=== PATIENT | female | born 1970 | race Caucasian/White ===

== ENCOUNTER 2019-08-18 07:23 | Emergency (ER) | payer OTHER, SELFPAY ==
[2019-08-18] VITALS (15 sets, daily range): BP systolic 107–123; BP diastolic 78–98; PULSE 61–80; RESP 10–22; TEMP 36.7; O2SAT 96–100
--- NOTE | ~2019-08-18 | XR_ITS ---
EXAMINATION: XR chest 2V DATE: 08/18/2019 07:53 INDICATION: Rest pain. Left arm and hand numbness and weakness. TECHNIQUE: PA and lateral views of the chest were obtained. COMPARISON: Chest radiograph dated 04/30/2009 FINDINGS: Minimal biapical pleural-parenchymal scarring. No other airspace opacities, pulmonary edema, pleural effusion or pneumothorax. The cardiomediastinal silhouette is normal. Visualized bones and soft tissu es are unremarkable. IMPRESSION: 1. No acute cardiopulmonary disease. Reviewed, dictated and finalized at location [facility]
--- NOTE | 2019-08-18 07:38 | ECG_ITS ---
Measurements Intervals [place] Rate: 70 P: 65 IN: 139 QRS: 29 QRSD: 80 T: 18 QT: 392 QTc: 423 Interpretive Statements SINUS RHYTHM LOW QRS VOLTAGE IN PRECORDIAL LEADS BORDERLINE ST-T WAVE ABNORMALITY- ANT/INF LEADS BORDERLINE ECG Electronically Signed On 08-18-2019 9:24:33 [employer] FIR[employer] by Maycol Flannery D.O.
[2019-08-18] MEDS: ASPIRIN 81 MG CHEWABLE TABLET 324 MG PO (07:45)
[2019-08-18 07:50] LABS: Basophils Percent Auto 0.2 % (0.2-1.2); Eosinophils Absolute Auto 0.1 K/mm3 (0-0.3); Hematocrit 42.9 % (37.0-47.0); Hemoglobin 14.3 g/dL (12.0-15.0); Immature Granulocyte Absolute 0.02 K/mm3 (0.00-0.031); Immature Granulocyte Percent A 0.3 % (0-0.5); Lymphocytes Percent Auto 34.9 % (18.3-44.2); Mean Corpuscular HGB Conc 33.3 g/dl (32-36); Mean Corpuscular Hemoglobin 31.2 pg (26-34); Mean Corpuscular Volume 93.7 fl (80-100); Mean Platelet Volume 10.8 fl (7.4-10.4); Monocytes Absolute Auto 0.8 K/mm3 (0.1-0.6); Monocytes Percent Auto 13.6 % (2.6-8.5); Neutrophils Absolute Auto 2.9 K/mm3 (1.3-6.7); Platelet Count Result 199 k/mm3 (150-375); Red Blood Count 4.58 M/mm3 (4.2-5.4); Red Cell Distribution Width 13.1 % (11.5-14.5); White Blood Count 5.7 K/mm3 (4.5-10.0)
[2019-08-18 07:57] LABS: INR 0.9
[2019-08-18 07:59] LABS: Partial Thromboplastin Time 31.5 SECONDS (22.3-36.8)
[2019-08-18 08:01] LABS: Blood Urea Nitrogen 11 mg/dL (7-17); Carbon Dioxide 30 mmol/L (22-30); Chloride 100 mmol/L (98-107); Estimated CRCL calculation 105 ml/min; Estimated Glomerular Filt Rate > 60; Glucose 82 mg/dL (65-105); Potassium 4.1 mmol/L (3.4-5.0); Sodium 139 mmol/L (137-145)
--- NOTE | 2019-08-18 08:05 | ED.CHESTPAIN ---
HPI - Chest Pain General Chief Complaint: Chest Pain Stated Complaint: cp Time Seen by Provider: 08/18/19 08:06 Source: patient Mode of arrival: ambulatory Limitations: no limitations History of Present Illness HPI narrative: A 49 y/o female presents to the ED with c/o midsternal CP. Pt got ready for bed at 9:30 PM last night but was unable to fall asleep because she was uncomfortable. At 1:00 AM pt states that she started to experience left arm pain. The CP then started at 4:00-5:00 AM. Pt rates the pain as a 5/10 in severity at onset but states that her current pain in the ED bed is a 1/10. Her pain is alleviated when sitting up. Pt has a history of trouble sleeping and occasionally takes Ambien. Pt denies any recent activity out of the ordinary or any extra stressors in her life. Pt is also on Duloxetine for nerve pain in her legs. She reports a PMHx of migraines, but denies smoking, a FHx of heart problems, and a PMHx of DM, HTN, and HLD. Onset (ago): hour(s) (4:00-5:00 AM) Onset: during rest Pain location: other (midsternal) Related Data Home Medications Medication Instructions Recorded Confirmed duloxetine 08/18/19 Allergies Allergy/AdvReac Type Severity Reaction Status Date / Time No Known Allergies Allergy Verified 08/18/19 07:39 Review of Systems Review of Systems: All systems reviewed & are unremarkable except as noted in HPI and below Cardiovascular: Cardiovascular: Reports chest pain (midsternal) Musculoskeletal: Comments: Reports: left arm pain preceding midsternal CP PMFSH Past Medical History Medical History (Updated 08/18/19 @ 08:35 by Jomar Lilly MD) Cerebral aneurysm Hx of migraines Surgical History Surgical History (Updated 08/18/19 @ 08:16 by Michelle Camejo) H/O: hysterectomy Previous section Social History Social History (Updated 08/18/19 @ 08:16 by Michelle Camejo) Smoking status: Never smoker Gender identity (if verbalized by the patient): Female Comments No PCP on file. Exam Narrative: Exam Narrative: General appearance: Well-developed, well-nourished Skin: Normal color Head: Normocephalic, nontraumatic Eyes: Clear conjunctiva ENT: Oropharynx normal, ears normal, nose normal Neck: Supple, nontender Chest and respiratory: Airway patent, no respiratory distress, no accessory muscle use Heart: Regular rate/rhythm Abdomen: Soft, nontender, no organomegaly, quiet bowel sounds Vascular: Normal peripheral pulses, normal capillary refill. Musculoskeletal: Normal range of motion, nontender back Neurologic: Alert and oriented ?3, [employer] is normal as tested, no gross motor deficit Course Course Emergency Course: Improving Vital Signs Vital signs: Vital Signs Pulse Rate 80 08/18/19 07:28 Respiratory Rate 22 H 08/18/19 07:28 Blood Pressure 123/98 H 08/18/19 07:28 Temperature 36.7 C 08/18/19 07:33 Pulse Rate 64 08/18/19 09:30 Respiratory Rate 15 08/18/19 09:30 Blood Pressure 107/83 08/18/19 09:01 Pulse Oximetry 100 08/18/19 09:30 MDM - Chest Pain MDM Narrative Medical decision making narrative: Atypical chest pain is my concern. Patient does not have any risk factor of coronary artery disease. History of chronic migraine, on duloxetine for nerve pain in the lower extremities, patient does not have any risk factor for peripheral neuropathy. Patient also been complaining of chronic right upper quadrant pain with negative extensive work-up including CAT scan of the abdomen and ultrasound. Patient on Ambien for insomnia. Patient does not smoke or drink, anxiety, stress, depression inducing atypical chest pain is my concern. EKG on arrival showed n
[2019-08-18 08:12] LABS: Troponin I < 0.012 ng/mL (0.000-0.034)
[2019-08-18 09:27] LABS: Alveolar/Arterial O2 Gradient 24.3 mmHg; Base Excess ABG 1.2 mEq/l (+/-2.0); Fractional Inspired Oxygen 21 %; HCO3 ABG 25.9 mEq/l (22.0-26.0); Oxygen Content ABG 19.1 %vol (16.0-22.0); Oxygen Saturation ABG 95.3 % (95.0-100.0); Oxyhemoglobin 95.5 % THb (90.0-100.0); PCO2 ABG 41.5 mmHg (35.0-45.0); PO2 ABG 75.7 mmHg (80.0-100.0); Total Hemoglobin 14.2 g/dL (12.0-18.0); pH ABG 7.413 (7.350-7.450)
[2019-08-18 09:28] LABS: Device ROOM AIR; Modified Allen's Test Pass; Site Drawn LEFT RADIAL
[2019-08-18 09:37] LABS: NT Pro B Type Natriuretic Pept 81 PG/ML (5-100)
[2019-08-18 10:10] LABS: D Dimer 0.27 ug/mL (<0.48)
[2019-08-18 11:06] LABS: Troponin I < 0.012 ng/mL (0.000-0.034)
== END 2019-08-18 11:13 | disposition home or self-care (01) ==
PROVIDERS: Emergency Provider Emergency Medicine; PCP Family Medicine
DX: R07.2 Precordial pain (principal); R94.31 Abnormal electrocardiogram [ECG] [EKG]
CPT/HCPCS: 36415; 36600; 71046; 80048; 82805; 83880; 84484; 85025; 85380; 85610; 85730; 87420; 87804; 93005; 99284; A9270

== ENCOUNTER 2024-03-13 13:16 | Emergency (ER) | payer OTHER, SELFPAY ==
--- NOTE | 2024-03-13 13:46 | ED.URI ---
HPI - URI/Sore Throat General Chief Complaint: Upper Respiratory Infection Stated Complaint: SORE THROAT History of Present Illness HPI Narrative: patient is a 53-year-old female, past medical history significant for migraine headaches and cerebral aneurysm, presents to [facility] with sore throat , rhinorrhea and a slight cough, onset of symptoms 3 days ago. She denies fevers or chills. She does have laryngitis. She is taking [id number] ibuprofen with some symptom relief. She denies any additional associated symptoms modifying factors. Related Data Home Medications Medication Instructions Recorded Confirmed dicyclomine 10 mg capsule 40 mg PO DAILY 03/13/24 03/13/24 eszopiclone 1 mg tablet 1 mg PO HS 03/13/24 03/13/24 pantoprazole 40 mg tablet,delayed 40 mg PO DAILY 03/13/24 03/13/24 release rimegepant 75 mg disintegrating 75 mg PO PRN PRN Migraine Headache 03/13/24 03/13/24 tablet (Nurtec ODT) topiramate 25 mg tablet 25 mg PO BID 03/13/24 03/13/24 Allergies Allergy/AdvReac Type Severity Reaction Status Date / Time iodine AdvReac Mild Hives Verified 03/13/24 13:29 Review of Systems ENT: Comments: for HPI Respiratory: Comments: refer to HPI PMFSH Past Medical History Medical History (Updated 03/13/24 @ 14:16 by RAMY Justice) Cerebral aneurysm Hx of migraines Surgical History Surgical History (Updated 03/27/20 @ 14:29 by Cr Irwin) H/O: hysterectomy Previous section Tubal ligation status Family History Family History (System 03/27/20 @ 14:29 by Cr Irwin) Mother Patient's mother is in good health Father Patient's father is in good health Grandparent DVT (deep venous thrombosis) Father Hypertension Other Diabetes mellitus Family history of attention deficit hyperactivity disorder (ADHD) Family history of migraine headaches Family history of transient ischemic attacks Social History Social History (System 03/27/20 @ 14:29 by Cr Irwin) Smoking status: Never smoker Alcohol intake: current Gender identity (if verbalized by the patient): Female Exam Const: General: healthy appearing and no acute distress Nutritional Appearance: well nourished Orientation/consciousness: patient oriented x3 Limitations: no limitations Other: patient's voice is hoarse, no stridor HENMT: Head: normal to inspection Ears: external ears normal and TM abnormal ( serous effusion bilaterally) Face/Nose/Sinus: Normal external nose present and Normal nares present Face and sinus: normal facial exam and sinuses nontender Mouth: Yes Normal oral and palatal mucosa present Teeth and gingiva: dentition normal Eyes: Conjunctivae: conjunctivae normal Pupils: Equal, round and reactive pupils present EOM: EOMs intact bilaterally Neck: Neck: normal visual inspection, no lymphadenopathy and no meningeal signs Resp: Effort & Inspection: normal respiratory effort Auscultation: clear to auscultation bilaterally Cardio: Rate: regular rate Rhythm: regular rhythm Skin: General skin exam: normal color Rashes: no rashes Wounds: no wounds Neuro: General: patient oriented x3, moves all extremities, no meningeal signs, no focal motor deficits and CN's II-XI intact bilaterally Cranial nerves: Yes Nystagmus not present Speech: normal speech Gait exam (Neuro): Normal gait present Extrem: General: normal to inspection Course Course Emergency Course: strep and COVID are negative, strep full reflux for culture. Will treat with promethazine DM, Zyrtec and Flonase as directed [id number]. Follow up with PCP in 3 days if symptoms are not starting to improve. Patient agreeable with plan. Level of Care: Express Care Visit ([id number]) Vital Signs Vital signs: Vital Signs Temperature 37.4 C 03/13/24 13:48 Pulse Rate 73 03/13/24 13:48 Respiratory Rate 16 03/13/24 13:48 Blood Pressure 101/69 03/13/24 13:48 Pulse Oximetry 99 09
[2024-03-13 13:48] VITALS: BP 101/69; PULSE 73; RESP 16; TEMP 37.4; O2SAT 99
[2024-03-13 14:10] LABS: EDSTREPNEGPOS1 Negative (Negative)
[2024-03-13 14:11] LABS: EDCOVIDSCREEN Negative (Negative)
== END 2024-03-13 14:22 | disposition home or self-care (01) ==
PROVIDERS: Emergency Provider Nurse Practitioner Family; PCP Internal Medicine
DX: J06.9 Acute upper respiratory infection, unspecified (principal); J06.0 Acute laryngopharyngitis
CPT/HCPCS: 87081; 87880; 99213; G0463

== ENCOUNTER 2024-08-01 12:39 | Emergency (ER) | payer OTHER, SELFPAY ==
[2024-08-01 13:01] VITALS: BP 99/74; PULSE 110; RESP 18; TEMP 37.1; O2SAT 100
--- OUTSIDE RECORDS SUMMARY | 2024-08-01 13:20 | XMS_ITS | Clinical Summary ---
Author Organization [facility] Address [address] [place] [address] Care Team Providers Care Director Of District Office Name Role Phone Charlotte Khan MD Primary Care Provider Allergies No known active allergies Medications * This document contains information received from the source organization and may not represent a complete record from that organization. ibuprofen (ADVIL,MOTRIN) 200 mg tab/cap Take by mouth every 6 (six) hours as needed for pain. Active prochlorperazine (COMPAZINE) 10 mg tabletIndication s:Nausea and Vomiting Take 1 tablet (10 mg total) by mouth every 8 (eight) hours as needed for nausea 30 tablet 021 Active rimegepant (Nurtec ODT) tablet,disintegr ating Place 1 tablet (75 mg total) under the tongue every other day 16 tablet 11 023 Active topiramate (TOPAMAX) 25 mg tablet TAKE 2 TABLETS AT BEDTIME 180 tablet 3 024 Active ondansetron ODT (ZOFRAN-ODT) 8 mg disintegrating tablet DISSOLVE 1 TABLET ON THE TONGUE EVERY 8 HOURS NEEDED FOR NAUSEA OR VOMITING. 8 tablet 14 024 Active eszopiclone (LUNESTA) 1 mg tabletIndication s:Insomnia Take 1 tablet (1 mg total) by mouth nightly as needed for sleep Take immediately before bedtime 30 tablet [address] (PROTONIX) 40 mg EC tablet Take 1 tablet (40 mg total) by mouth daily 90 tablet 4 024 2024 Active dicyclomine (BENTYL) 10 mg capsule Take 1 capsule (10 mg total) by mouth 4 (four) times a day before meals and nightly 120 capsule 11 024 2024 Active Botox 100 unit recon soln INJECT UP TO 200 UNITS INTRAMUSCULARLY EVERY 12 WEEKS (DISCARD UNUSED AFTER FIRST USE) 2 each 2 Active cholecalciferol 25 mcg (1,000 unit) tablet Take 2 tablets (2,000 Units total) by mouth daily Active cyanocobalamin (Vitamin B-12) 50 mcg tabletIndication s:Prevention of Vitamin B12 Deficiency Take 1 tablet (50 mcg total) by mouth daily Active tirzepatide, weight loss, (Zepbound) 5 mg/0.5 mL pen injectorIndicati ons:Class 1 obesity due to excess calories with serious comorbidity and body mass index (BMI) of 30.0 to 30.9 in adult Inject 0.5 mL (5 mg total) under the skin every 7 days Start after taking 2.5 mg weekly for 4 weeks. 2 mL 3 025 Active Botox 100 unit recon soln INJECT UP TO 200 UNITS INTRAMUSCULARLY EVERY 12 WEEKS (DISCARD UNUSED AFTER FIRST USE) 2 each 2 024 2024 Discontinued tirzepatide, weight loss, (Zepbound) 2.5 mg/0.5 mL pen injectorIndicati ons:Class 1 obesity due to excess calories with serious comorbidity and body mass index (BMI) of 30.0 to 30.9 in adult Inject 0.5 mL (2.5 mg total) under the skin every 7 days 2 mL 024 2024 Discontinued tirzepatide, weight loss, (Zepbound) 5 mg/0.5 mL pen injectorIndicati ons:Class 1 obesity due to excess calories with serious comorbidity and body mass index (BMI) of 30.0 to 30.9 in adult Inject 0.5 mL (5 mg total) under the skin every 7 days Start after taking 2.5 mg weekly for 4 weeks. 2 mL 2 024 2024 Discontinued( Reorder) Hospital, Clinic, or Other Facility Administered Medication Ordered Dose Route Frequency Start Date End Date Status onabotulinumtoxin A (BOTOX) 200 unit injection 200 UnitsIndications:Intr actable chronic migraine without aura and without status migrainosus 200 Units OTHER Once for Clinic-Administere d Medication 08/06/2024 Active Active Problems Problem Noted Date Diagnosed Date Encounter for weight management 05/14/2024 Metabolic syndrome 05/14/2024 Class 1 obesity due to exces s calories without serious comorbidity with body mass index (BMI) of 31.0 to 31.9 in adult 05/14/2024 Special screening for malignant neoplasms, colon 01/20/2022 Overview (01/20/2022): Added automatically from request for surgery [id number] Migraine 06/16/2020 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) 12/23/2014 Vitamin B12 deficiency 12/10/2013 Arthralgia of hip 11/22/2012 Resolved Problems Problem Noted Date Diagnosed Date Resolved Date Mixed conductive and sensori neural hearing loss of right ear 12/23/2014 06/24/2020 Sensorineural hearing loss (SNHL) 12/23/2014 06/24/2020 Thrombocytopenia 09/30/2011 04/08/2024 Encounters Date Type Department Care Team Description 07/30/2024 9:20 AM CARTON FORMING MACHINE HELPER Office Visit [facility] [address] [place] [address] [address] [place] [id number] Violet Gutierrez MD Encounter for weight management (Primary Dx); Metabolic syndrome; Class 1 obesity due to excess calories without serious comorbidity with body mass index (BMI) of 31.0 to 31.9 in adult; Cerebral aneurysm, nonruptured; Other migraine without status migrainosus, not intractable; Class 1 obesity due to excess calories with serious comorbidity and body mass index (BMI) of 30.0 to 30.9 in adult; Fatigue, unspecified type 06/21/2024 9:01 AM CARTON FORMING MACHINE HELPER - 06/21/2024 11:59 PM CARTON FORMING MACHINE HELPER Hospital Encounter [address] [place] [address] Encounter for screening mammogram for malignant neoplasm of breast Discharge Disposition: Discharge to home or self care 05/24/2024 7:25 AM CARTON FORMING MACHINE HELPER Lab [address] [place] [address] Encounter for weight management; Metabolic syndrome; Class 1 obesity due to excess calories with serious comorbidity and body mass index (BMI) of 30.0 to 30.9 in adult 05/22/2024 Telephone [facility] [address] [place] [address] Medical Office Building [address], [address] [place] [address] Lilian Ward, IKER Prior Auth 05/21/2024 3:40 PM CARTON FORMING MACHINE HELPER Office Visit [facility] [address] [place] [address] [address] [place] [phone] Violet Gutierrez MD Encounter for weight management (Primary Dx); Metabolic syndrome; Intractable chronic migraine without aura and without status migrainosus; Cerebral aneurysm, nonruptured; Travel advice encounter; Class 1 obesity due to excess calories without serious comorbidity with body mass index (BMI) of 31.0 to 31.9 in adult; Class 1 obesity due to excess calories with serious comorbidity and body mass index (BMI) of 30.0 to 30.9 in adult 05/15/2024 Orders Only [facility] [address] 6th [address] [place] [phone] Maria Teresa Kelly Intractable chronic migraine without aura and without status migrainosus (Primary Dx) 05/14/2024 4:00 PM CARTON FORMING MACHINE HELPER Procedure visit [facility] [address] 6[address] [place] [address] Darya Jaime MD PhD Intractable chronic migraine without aura and without status migrainosus (Primary Dx) from Last 3 Months Immunizations Name Administration Dates Next Due Influenza, Trivalent, Cell Culture-based MDCK, Preservative Free, Antibiotic Free, Intramuscular 04/19/2024 Influenza, Unspecified 04/08/2024(Deferr ed: Patient Refused),04/04/2023,04/03/2021, 020,04/28/2018 Pfizer SARS-CoV-2 Monovalent Vaccination (12+ Yrs) PURPLE 12/12/2020,11/21/2020 Tdap 06/24/2020 Surgical History Surgery Date Site/Laterality Comments MN LIG/TRNSXJ FLP TUBE ABDL/VAG APPR UNI/BI Tubal Ligation - (Added by TW Conv) SINUS SURGERY Sinus Surgery - (Added by TW Conv) MN TOTAL ABDOMINAL HYSTERECT W/WO RMVL TUBE OVARY Hysterectomy - 07/2009 partial (Added by TW Conv) SECTION PARTIAL HYSTERECTOMY 07/03/2010 - 07/02/2011 HYSTERECTOMY CEREBRAL ANGIOGRAM 07/03/2016 - 07/02/2017 to assess cerebral aneurysm Medical History Medical History Date Comments delivery delivered Cesa rean Delivery - 2001 (Added by TW Conv) Chronic sinusitis Chronic sinusi tis - (Added by TW Conv) Headache Migraines Cerebral aneurysm Chronic constipation Family History Medical History Relation Name Comments Alcohol abuse Father Heart disease Father Family history of cardiac disorder - (Added by TW Conv) Hypertension Father Stroke Father Family history of cerebrovascular accident (CVA) - (Added by TW Conv) COPD Mother Headache Other 1 Headache - Moth er, Sister, Son (Added by TW Conv) Breast cancer Other 2 Family history of malignant neoplasm of breast - Relation: Aunt (Added by TW Conv) Relation Name Status Comments Father Alive Mother Alive Other 1 Other 2 Social History Tobacco Use Types Packs/Day Years Used Date Smoking Tobacco: Never Smokeless Tobacco: Never Tobacco Cessation:Counseling Given: Not Answered Alcohol Use Standard Drinks/Week Comments Not Currently 0 (1 standard drink = 0.6 oz pur e alcohol) rare AUDIT-C Answer Date Recorded Q1: How often do you have a drink containing alc ohol? Monthly or less 02/14/2022 Q2: How many drinks containi ng alcohol do you have on a typical day when you are drinking? 1 or 2 02/14/2022 Q3: How often do you have si x or more drinks on one occasion? 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 Not on file Obstetrics History Last Filed Vital Signs Vital Sign Reading Time Taken Comments Blood Pressure 106/78 07/30/2024 9:00 AM CARTON FORMING MACHINE HELPER Pulse 93 07/30/2024 9:00 AM CARTON FORMING MACHINE HELPER Temperature 36.1 ??C (97 ??F) 07/30/2024 9:00 AM CARTON FORMING MACHINE HELPER Respiratory Rate 16 02/28/2022 8:50 AM CDT Oxygen Saturation 100% 07/30/2024 9:00 AM CARTON FORMING MACHINE HELPER Inhaled Oxygen Concentration - - Weight 65.1 kg (143 lb 9.6 oz) 07/30/2024 9:00 A M CARTON FORMING MACHINE HELPER Height 157.5 cm (5' 2 ) 07/30/2024 9:00 AM CARTON FORMING MACHINE HELPER Body Mass Index 26.26 07/30/2024 9:00 AM CARTON FORMING MACHINE HELPER Plan of Treatment Health Maintenance Due Date Last Done Comments Hepatitis C Screening 1971 Hepatitis B Screening 1989 Zoster Vaccine (1 of 2) 2021 Covid-19 Vaccine ( season) 2024 12/12/2020, 11/21/2020 Depression Screening 04/08/2025 04/08/2024, 11/01/2023, 04/06/2023, Additional history exists Regular Well Visit/Exam 18-64 04/08/2025 04/08/2024, 04/06/2023, 12/22/2021, Additional history exists Breast Cancer Screening-Mammogram 06/21/2025 06/21/2024, 08/20/2022, 05/28/2019, Additional history exists DTaP/Tdap/Td Vaccine (2 - Td or Tdap) 06/24/2030 06/24/2020 Colon Cancer Screening-Colonoscopy 02/29/2032 02/28/2022 Influenza Vaccine Completed 04/19/2024, , 04/03/2021, Additional history exists Pneumococcal vaccine <65 Aged Out No longer eligible based on patient's age to complete this topic Procedures Procedure Name Priority Date/Time Associated Diagnosis Comments SCREENING MAMMOGRAM BILATERAL W SHAYAN Schedule Routine, Read Routine (OP Routine) 06/21/2024 9:14 AM CARTON FORMING MACHINE HELPER Encounter for screening mammogram for malignant neoplasm of breast TSH Routine 05/24/2024 7:38 AM CARTON FORMING MACHINE HELPER Encounter for weight management Metabolic syndrome Class 1 obesity due to excess calories with serious comorbidity and body mass index (BMI) of 30.0 to 30.9 in adult LIPID PANEL Routine 05/24/2024 7:38 AM CARTON FORMING MACHINE HELPER Encounter for weight management Metabolic syndrome Class 1 obesity due to excess calories with serious comorbidity and body mass index (BMI) of 30.0 to 30.9 in adult VITAMIN B12 Routine 05/24/2024 7:38 AM CARTON FORMING MACHINE HELPER Encounter for weight management Metabolic syndrome Class 1 obesity due to excess calories with serious comorbidity and body mass index (BMI) of 30.0 to 30.9 in adult VITAMIN D 25 HYDROXY Routine 05/24/2024 7:38 AM CARTON FORMING MACHINE HELPER Encounter for weight management Metabolic syndrome Class 1 obesity due to excess calories with serious comorbidity and body mass index (BMI) of 30.0 to 30.9 in adult INSULIN, TOTAL Routine 05/24/2024 7:38 AM CARTON FORMING MACHINE HELPER Encounter for weight management Metabolic syndrome Class 1 obesity due to excess calories with serious comorbidity and body mass index (BMI) of 30.0 to 30.9 in adult HEMOGLOBIN A1C Routine 05/24/2024 7:38 AM CARTON FORMING MACHINE HELPER Encounter for weight management Metabolic syndrome Class 1 obesity due to excess calories with serious comorbidity and body mass index (BMI) of 30.0 to 30.9 in adult CRP (ACUTE PHASE) Routine 05/24/2024 7:3 8 AM CARTON FORMING MACHINE HELPER Encounter for weight management Metabolic syndrome Class 1 obesity due to excess calories with serious comorbidity and body mass index (BMI) of 30.0 to 30.9 in adult COLONOSCOPY Routine 02/28/2022 from Last 3 Months or Most Recently Relevant to Health Maintenance Results * Screening Mammogram Bilateral W Shayan (06/21/2024 9:14 AM CARTON FORMING MACHINE HELPER) Anatomical Region Laterality Modality Breast Bilateral Mammography Narrative 06/21/2024 3:24 PM CARTON FORMING MACHINE HELPER Mammogram Technique: Bilateral Digital Breast Tomosynthesis, Bilateral C-view 2D Screening mammogram. ??Views obtained: ??bilateral craniocaudal and bilateral mediolateral oblique. ??Computer Aided Detection was performed. Mammogram Findings: The present examination has been compared to prior imaging studies performed at [facility] on 11/03/2016, 05/28/2019 and 08/20/2022. The breasts are heterogeneously dense, which may obscure small masses. There is no suspicious abnormality in either breast. Impression: There is no mammographic evidence of malignancy. Annual screening mammography is recommended. If supplemental screening is desired, breast MRI would be recommended in this patient with heterogeneously dense breasts. OVERALL FINAL ASSESSMENT: BI-RADS CATEGORY 1: ??Negative. Procedure Note Maria Teresa Mendoza MD - 06/21/2024 Mammogram Technique: Bilateral Digital Breast Tomosynthesis, Bilateral C-view 2D Screening mammogram. Views obtained: bilateral craniocaudal and bilateral mediolateral oblique. Computer Aided Detection was performed. Mammogram Findings: The present examination has been compared to prior imaging studies performed at [facility] on 11/03/2016, 05/28/2019 and 08/20/2022. The breasts are heterogeneously dense, which may obscure small masses. There is no suspicious abnormality in either breast. Impression: There is no mammographic evidence of malignancy. Annual screening mammography is recommended. If supplemental screeningis desired, breast MRI would be recommended in this patient with heterogeneously dense breasts. OVERALL FINAL ASSESSMENT: BI-RADS CATEGORY 1: Negative. Charlotte Khan MD IMG MAMMO PRO CEDURES Final Result * Vitamin D 25 hydroxy (05/24/2024 7:38 AM CARTON FORMING MACHINE HELPER) Vitamin D 25-OH 33 30 - 80 ng/mL Blood 05/24/2024 7:38 AM CARTON FORMING MACHINE HELPER 05/24/2024 9:21 AM CARTON FORMING MACHINE HELPER Result [facility] Violet Gutierrez MD LAB BLOOD ORDERABLES Final Re sult Performing Organization Address [facility] Co de Phone Number [facility] Department [place] [address] * Insulin, total (05/24/2024 7:38 AM CARTON FORMING MACHINE HELPER) Insulin 6.8 2.6 - 25.0 mcIUnit/mL Blood 05/24/2024 7:38 AM CARTON FORMING MACHINE HELPER 05/24/2024 9:21 AM CARTON FORMING MACHINE HELPER Result [facility] Violet Gutierrez MD LAB BLOOD ORDERABLES Final Re sult Performing Organization Address [facility] Co de Phone Number [facility] [place] [address] * CRP (acute phase) (05/24/2024 7:38 AM CARTON FORMING MACHINE HELPER) CRP 2.1 <=10.0 mg/L Blood 05/24/2024 7:38 AM CARTON FORMING MACHINE HELPER 05/24/2024 9:21 AM CARTON FORMING MACHINE HELPER Result [facility] Violet Gutierrez MD LAB BLOOD ORDERABLES Final Re sult Performing Organization Address City/[facility] Co de Phone Number [facility] [place] [address] * TSH (05/24/2024 7:38 AM CARTON FORMING MACHINE HELPER) [facility] Thyroid Stimulating Hormone 1.74 0.30 - 4.20 mcIUnit/mL Blood 05/24/2024 7:38 AM CARTON FORMING MACHINE HELPER 05/24/2024 9:21 AM CARTON FORMING MACHINE HELPER Violet Gutierrez MD LAB BLOOD ORDERABLES Final Re sult Performing Organization Address [facility] [place] [address] * Hemoglobin A1c (05/24/2024 7:38 AM CARTON FORMING MACHINE HELPER) [facility] Hgb A1C 5.3 4.0 - 5.6 % Estimated Average Glucose 105 mg/dL [facility] Comment: The ADA recommends reporting an estimated Average Glucose (eAG) with all Hemoglobin A1c results using the equation derived from a study of 507 normal and diabetic adults. ??Minority populations were underrepresented and children were not included. ?? (Diabetes Care 2020; 43(S1): S66-S76). ??The eAG is not equivalent to a fasting glucose. Blood 05/24/2024 7:38 AM CARTON FORMING MACHINE HELPER 05/24/2024 9:22 AM CARTON FORMING MACHINE HELPER Violet Gutierrez MD LAB BLOOD ORDERABLES Final Re sult Performing Organization Address [facility] Co de Phone Number [facility] [place] [address] * Vitamin B12 (05/24/2024 7:38 AM CARTON FORMING MACHINE HELPER) [facility] Vitamin B12 382 230 - 1,250 pg/mL Blood 05/24/2024 7:38 AM CARTON FORMING MACHINE HELPER 05/24/2024 9:21 AM CARTON FORMING MACHINE HELPER us Violet Gutierrez MD LAB BLOOD ORDERABLES Final Re sult [facility] [place] [address] * Lipid panel (05/24/2024 7:38 AM CARTON FORMING MACHINE HELPER) Cholesterol 170 30 - 199 mg/dL Comment: Interpretive Data Ages < or = 19 years ??Acceptable: ? <170 mg/dL ??Borderline high: ??170-199 mg/dL ??High: ? >or= 200 mg/dL Ages > or = 20 years ??Desirable: ?<200 mg/dL ??Borderline high: ??200-239 mg/dL ??High: ? >or= 240 mg/dL Literature References: 1. Expert Panel on Integrated Guidelines for Cardiovascular Health and Risk Reduction in Children and Adolescents. Pediatrics 2011;128:S213 2. NCEP Expert Panel. Circulation 2004;110:227 Current Interpretive Data was last revised on 2018. Triglycerides 44 <=149 mg/dL [facility] Comment: Interpretive Data Ages < or = 9 years ??Acceptable: ? <75 mg/dL ??Borderline high: ??75-99 mg/dL ??High: ? >or= 100 mg/dL Ages 10 to 20 years ??Acceptable: ? <90 mg/dL ??Borderline high: ??90-129 mg/dL ??High: ? >or= 130 mg/dL Ages > or = 20 years ??Desirable: ?<150 mg/dL ??Borderline high: ??150-199 mg/dL ??High: ? 200-499 mg/dL ?Very high: ?? >or= 499 mg/dL Literature References: 1. Expert Panel on Integrated Guidelines for Cardiovascular Health and Risk Reduction in Children and Adolescents. Pediatrics 2011;128:S213 2. NCEP Expert Panel. Circulation 2004;110:227 Current Interpretive Data was last revised on 2018. HDL 45 >=40 mg/dL [facility] Comment: Interpretive Data Ages < or = 19 years ??Acceptable: ? >45 mg/dL ??Borderline low: ?? 40-45 mg/dL ??Low: ? <40 mg/dL Ages > or = 20 years ??Desirable: ?>or= 60 mg/dL ??Low: ? <40 mg/dL Literature References: 1. Expert Panel on Integrated Guidelines for Cardiovascular Health and Risk Reduction in Children and Adolescents. Pediatrics 2011;128:S213 2. NCEP Expert Panel. Circulation 2004;110:227 Current Interpretive Data was last revised on 2018. LDL, calculated 116 <=129 mg/dL [facility] Comment: Interpretive Data Ages < or = 19 years ??Acceptable: ? <110 mg/dL ??Borderline high: ??110-129 mg/dL ??High: ?>or= 130 mg/dL Ages > or = 20 years ??Optimal: ? <100 mg/dL ??Near optimal: ?100-129 mg/dL ??Borderline high: ?? 130-159 mg/dL ??High: ?>160 mg/dL Calculated using the [place] LDL-C estimating equation. This equation was implemented on 2024. Prior to this date LDL-C was estimated using the Friedewald equation. Literature References: 1. Expert Panel on Integrated Guidelines for Cardiovascular Health and Risk Reduction in Children and Adolescents. Pediatrics 2011;128:S213 2. NCEP Expert Panel. Circulation 2004;110:227 3. Linwood Hays et al. GIANCARLO Cardiol. 2020 October 31;5(5):540-548. doi: 10.1001/jamacardio.2020.0013 Current Interpretive Data was last revised on 2024. Non-HDL Cholesterol 125 mg/dL [facility] Comment: Interpretive Data Ages < or = 19 years ??Acceptable: ?<120 mg/dL ??Borderline high: ??120-144 mg/dL ??High: ?>145 mg/dL Ages > or = 20 years ??When triglycerides are >200 mg/dL, Non-HDL cholesterol is a secondary target of ? therapy with treatment goals that are 30 mg/dL greater than the LDL cholesterol target. ? Literature References: 1. Expert Panel on Integrated Guidelines for Cardiovascular Health and Risk Reduction in Children and Adolescents. Pediatrics 2011;128:S213 2. NCEP Expert Panel. Circulation 2004;110:227 Current Interpretive Data was last revised on 2018. [facility]ol/HDL ratio 4 [facility] Blood 05/24/2024 7:38 AM CARTON FORMING MACHINE HELPER 05/24/2024 9:21 AM CARTON FORMING MACHINE HELPER iVolet Gutierrez MD LAB BLOOD ORDERABLES Final Re sult Performing Organization Address City/State/[facility] Co de Phone Number [facility] Department [place] [address] * Colonoscopy (02/28/2022) Anatomical Region Laterality Modality Other Historical Provider ENDOSCOPY PROCEDURES Sakina l Result from Last 3 Months or Most Recently Relevant to Health Maintenance Insurance EMPLOYEES EMPLOYEES [employer] EMPLOYEES Care Teams Director Of District Office Relationship Specialty Start Date End Date Charlotte Khan MD PCP - General Internal Medicine 06/24/20
--- OUTSIDE RECORDS SUMMARY | 2024-08-01 13:20 | XMS_ITS | Encounter Summary ---
Author Organization [facility] Address [address] [place] [address] Phone Care Team Providers Care Mgmt Consultant Name Role Phone Charlotte Khan MD Primary Care Provider Encounter Details Date Type Department Care Team (Late st Contact Info) Description 08/01/2023 Documentation [facility] Neuro Sleep [address] 6th [address] [place] [address] [place] [facility] Social History Tobacco Use Types Packs/Day Years Used Date Smoking Tobacco: Never Smokeless Tobacco: Never Alcohol Use Standard Drinks/Week Comments Not Currently [...] points, staff should administer the PHQ-9) 0 04/06/2023 Comments Unknown Sex and Gender Information Value Date Recorded Sex Assigned at Not on file Legal Sex Female 11:20 AM UNDERWRITING CLERKS SUPERVISOR Gender Identity Not on file Sexual Orientation Not on file 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
--- OUTSIDE RECORDS SUMMARY | 2024-08-01 13:20 | XMS_ITS | Clinical Summary ---
Author Organization [facility] Care Team Providers Care Mold Holder Name Role Phone Unavailable Primary Care Provider Unavailabl e Social History Tobacco Use Types Packs/Day Years Used Date Smoking Tobacco: Never Assessed Comments Unknown Sex and Gender Information Value Date Recorded Sex Assigned at Not on file Legal Sex Female 8:21 AM DOBIE MAN Gender Identity Not on file Sexual Orientation Not on file Plan of Treatment Health Maintenance Due Date Last Done Comments Hepatitis C Virus (HCV) Screening 1971 Hepatitis B Immunization (1 of 3 - 19+ 3-dose series) 1990 Pap Smear 1992 Cervical Cancer Screening (CCS) 2001 HPV/Cotest 2001 Colonoscopy 2016 Colorectal Cancer Screening 2016 Cologuard 2021 Immunochemical Fecal Occult Blood 2021 Mammogram 2021 Pneumococcal Immunization (5 0+ years) (1 of 1 - PCV) 2021 Zoster Immunization (1 of 2) 2021 Influenza Immunization (#1) 2024 04/16/2020 SARS-COV-2 Immunization ( - season) 2024 Respiratory Syncytial Virus (RSV) Immunization (Adult) (1 - 1-dose 75+ series) 2046 DTaP/Tdap/Td Immunization Discontinued 06/24/2020 TdaP Immunization Completed 06/24/2020 Meningococcal Immunization (ACWY) Aged Out No longer eligible based on patient's age to complete this topic Pneumococcal Immunization Combined Aged Out No longer eligible based on patient's age to complete this topic Rotavirus Immunization Aged Out No lo nger eligible based on patient's age to complete this topic
--- OUTSIDE RECORDS SUMMARY | 2024-08-01 13:20 | XMS_ITS | Referral Summary ---
Author Organization [facility] Address [address] [place] [address] Care Team Providers Care Dispensary Technician Name Role Phone Charlotte Khan MD Primary Care Provider Encounters Date Type Department Care Team Description 07/30/2024 9:20 AM ASSISTANT WINEMAKER Office Visit [facility] [address] [place] [address] [address] [place] [address] Violet Gutierrez MD Encounter for weight management [...] adult; Fatigue, unspecified type 06/21/2024 9:01 AM ASSISTANT WINEMAKER - 06/21/2024 11:59 PM ASSISTANT WINEMAKER Hospital Encounter [address] [place] [address] Encounter for screening mammogram for malignant neoplasm of breast Discharge Disposition: Discharge to home or self care 05/24/2024 7:25 AM ASSISTANT WINEMAKER Lab [facility] [address] [place] [address] [address] [place], [place] [id number] Encounter for weight management; Metabolic syndrome; Class 1 obesity due to excess calories with serious comorbidity and body mass index (BMI) of 30.0 to 30.9 in adult 05/22/2024 Telephone [facility] [address] [place] [address] Lilian Ward, MAGNETIC OBSERVER Prior Auth 05/21/2024 3:40 PM ASSISTANT WINEMAKER Office Visit [facility] [address] [facility] [address] [place] [address] Violet Gutierrez MD Encounter for weight management [...] to 30.9 in adult 05/15/2024 Orders Only [facility] General Neurology [address] 6th [address] [place] [address] Maria Teresa Kelly Intractable chronic migraine without aura and without status migrainosus (Primary Dx) 05/14/2024 4:00 PM ASSISTANT WINEMAKER Procedure visit [facility] General Neurology [address] 6[address] [place] [address] Darya Jaime MD PhD Intractable chronic migraine without aura and without status migrainosus (Primary Dx) from Last 3 Months Allergies No known active allergies Medications * [...] the tongue every other day 16 tablet 12/13/2 023 Active topiramate (TOPAMAX) 25 mg tablet [...] UNUSED AFTER FIRST USE) 2 each 2 025 Active cholecalciferol 25 mcg (1,000 unit) tablet [...] (01/20/2022): Added automatically from request for surgery [id number] Migraine 06/16/2020 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 Assessment & Plan (08/23/2018 2:48 PM ASSISTANT WINEMAKER): For that reason, I have recommended voice therapy here at the [facility] in [...] loss (SNHL) 12/23/2014 06/24/2020 Thrombocytopenia 09/30/2011 04/08/2024 Immunizations Name Administration Dates Next Due Influenza, Trivalent, Cell Culture-based MDCK, Preservative Free, Antibiotic Free, Intramuscular 04/19/2024 Influenza, Unspecified 04/08/2024(Deferr ed: Patient Refused),04/04/2023,04/03/2021, 020,04/28/2018 Pfizer SARS-CoV-2 Monovalent Vaccination (12+ Yrs) PURPLE 12/12/2020,11/21/2020 Tdap 06/24/2020 Social History Tobacco Use Types Packs/Day Years [...] on file Legal Sex Female 11:20 AM ASSISTANT WINEMAKER Gender Identity Not on file Sexual Orientation Not on file 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 Not on file Last Filed Vital Signs Vital Sign Reading Time Taken Comments Blood Pressure 106/78 07/30/2024 9:00 AM ASSISTANT WINEMAKER Pulse 93 07/30/2024 9:00 AM ASSISTANT WINEMAKER Temperature 36.1 ??C (97 ??F) 07/30/2024 9:00 AM ASSISTANT WINEMAKER Respiratory Rate 16 02/28/2022 8:50 AM CDT Oxygen Saturation 100% 07/30/2024 9:00 AM ASSISTANT WINEMAKER Inhaled Oxygen Concentration - - Weight 65.1 kg (143 lb 9.6 oz) 07/30/2024 9:00 A M ASSISTANT WINEMAKER Height 157.5 cm (5' 2 ) 07/30/2024 9:00 AM ASSISTANT WINEMAKER Body Mass Index 26.26 07/30/2024 9:00 AM ASSISTANT WINEMAKER Plan of Treatment Not on file Procedures Procedure Name Priority Date/Time Associated Diagnosis Comments SCREENING MAMMOGRAM BILATERAL W SHAYAN Schedule Routine, Read Routine (OP Routine) 06/21/2024 9:14 AM ASSISTANT WINEMAKER Encounter for screening mammogram for malignant neoplasm of breast TSH Routine 05/24/2024 7:38 AM ASSISTANT WINEMAKER Encounter for weight management Metabolic syndrome Class 1 obesity due to excess calories with serious comorbidity and body mass index (BMI) of 30.0 to 30.9 in adult LIPID PANEL Routine 05/24/2024 7:38 AM ASSISTANT WINEMAKER Encounter for weight management Metabolic syndrome Class 1 obesity due to excess calories with serious comorbidity and body mass index (BMI) of 30.0 to 30.9 in adult VITAMIN B12 Routine 05/24/2024 7:38 AM ASSISTANT WINEMAKER Encounter for weight management Metabolic syndrome Class 1 obesity due to excess calories with serious comorbidity and body mass index (BMI) of 30.0 to 30.9 in adult VITAMIN D 25 HYDROXY Routine 05/24/2024 7:38 AM ASSISTANT WINEMAKER Encounter for weight management Metabolic syndrome Class 1 obesity due to excess calories with serious comorbidity and body mass index (BMI) of 30.0 to 30.9 in adult INSULIN, TOTAL Routine 05/24/2024 7:38 AM ASSISTANT WINEMAKER Encounter for weight management Metabolic syndrome Class 1 obesity due to excess calories with serious comorbidity and body mass index (BMI) of 30.0 to 30.9 in adult HEMOGLOBIN A1C Routine 05/24/2024 7:38 AM ASSISTANT WINEMAKER Encounter for weight management Metabolic syndrome Class 1 obesity due to excess calories with serious comorbidity and body mass index (BMI) of 30.0 to 30.9 in adult CRP (ACUTE PHASE) Routine 05/24/2024 7:3 8 AM ASSISTANT WINEMAKER Encounter for weight management Metabolic syndrome Class 1 obesity due to excess calories with serious comorbidity and body mass index (BMI) of 30.0 to 30.9 in adult COLONOSCOPY Routine 02/28/2022 from Last 3 Months or Most Recently Relevant to Health Maintenance Results * Screening Mammogram Bilateral W Shayan (06/21/2024 9:14 AM ASSISTANT WINEMAKER) Anatomical Region Laterality Modality Breast Bilateral Mammography Narrative 06/21/2024 3:24 PM ASSISTANT WINEMAKER Mammogram Technique: Bilateral Digital Breast Tomosynthesis, Bilateral C-view 2D Screening mammogram. ??Views obtained: ??bilateral craniocaudal and bilateral mediolateral oblique. ??Computer Aided Detection was performed. Mammogram Findings: The present examination has been compared to prior imaging studies performed at [facility] on 11/03/2016, 05/28/2019 and 08/20/2022. The breasts [...] compared to prior imaging studies performed at [facility] on 11/03/2016, 05/28/2019 and 08/20/2022. The breasts are heterogeneously dense, which may obscure small masses. There is no suspicious abnormality in either breast. Impression: There is no mammographic evidence of malignancy. Annual screening mammography is recommended. If supplemental screeningis desired, breast MRI would be recommended in this patient with heterogeneously dense breasts. OVERALL FINAL ASSESSMENT: BI-RADS CATEGORY 1: Negative. Result [facility] Charlotte Khan MD IMG MAMMO PRO CEDURES Final Result * Vitamin D 25 hydroxy (05/24/2024 7:38 AM ASSISTANT WINEMAKER) Vitamin D 25-OH 33 30 - 80 ng/mL Blood 05/24/2024 7:38 AM ASSISTANT WINEMAKER 05/24/2024 9:21 AM ASSISTANT WINEMAKER Result [facility] Violet Gutierrez MD LAB BLOOD ORDERABLES Final Re sult Performing Organization Address [facility] Phone Number [facility] Department [place] [address] * Insulin, total (05/24/2024 7:38 AM ASSISTANT WINEMAKER) Insulin 6.8 2.6 - 25.0 mcIUnit/mL Blood 05/24/2024 7:38 AM ASSISTANT WINEMAKER 05/24/2024 9:21 AM ASSISTANT WINEMAKER Result [facility] Violet Gutierrez MD LAB BLOOD ORDERABLES Final Re sult Performing Organization Address [facility] Phone Number [facility] Department [place] [address] * CRP (acute phase) (05/24/2024 7:38 AM ASSISTANT WINEMAKER) CRP 2.1 <=10.0 mg/L Blood 05/24/2024 7:38 AM ASSISTANT WINEMAKER 05/24/2024 9:21 AM ASSISTANT WINEMAKER Result [facility] Violet Gutierrez MD LAB BLOOD ORDERABLES Final Re sult Performing Organization Address [facility]/ZIP Co de Phone Number [facility] [place] [address] * TSH (05/24/2024 7:38 AM ASSISTANT WINEMAKER) Pathologist [facility] Thyroid Stimulating Hormone 1.74 0.30 - 4.20 mcIUnit/mL Blood 05/24/2024 7:38 AM ASSISTANT WINEMAKER 05/24/2024 9:21 AM ASSISTANT WINEMAKER Violet Gutierrez MD LAB BLOOD ORDERABLES Final Re sult Performing Organization Address [facility] [place] [address] * Hemoglobin A1c (05/24/2024 7:38 AM ASSISTANT WINEMAKER) [facility] Hgb A1C 5.3 4.0 - 5.6 % Estimated Average Glucose 105 mg/dL [facility] Comment: The ADA recommends reporting an estimated Average Glucose (eAG) with all Hemoglobin A1c results using the equation derived from a study of 507 normal and diabetic adults. ??Minority populations were underrepresented and children were not included. ?? (Diabetes Care 2020; 43(S1): S66-S76). ??The eAG is not equivalent to a fasting glucose. Blood 05/24/2024 7:38 AM ASSISTANT WINEMAKER 05/24/2024 9:22 AM ASSISTANT WINEMAKER Violet Gutierrez MD LAB BLOOD ORDERABLES Final Re sult Performing Organization Address [facility] Co de Phone Number [facility] [place] [address] * Vitamin B12 (05/24/2024 7:38 AM ASSISTANT WINEMAKER) [facility] Vitamin B12 382 230 - 1,250 pg/mL Blood 05/24/2024 7:38 AM ASSISTANT WINEMAKER 05/24/2024 9:21 AM ASSISTANT WINEMAKER Result [facility] Violet Gutierrez MD LAB BLOOD ORDERABLES Final Re sult [facility] Department [place] [address] * Lipid panel (05/24/2024 7:38 AM ASSISTANT WINEMAKER) Cholesterol 170 30 - 199 mg/dL Comment: [...] on 2018. Triglycerides 44 <=149 mg/dL [facility] Comment: Interpretive Data Ages < or = [...] revised on 2018. HDL 45 >=40 mg/dL [facility] Comment: Interpretive Data Ages < or [...] on 2018. LDL, calculated 116 <=129 mg/dL [facility] Comment: Interpretive Data Ages < or [...] NCEP Expert Panel. Circulation 2004;110:227 3. [place] Gregorio al. GIANCARLO Cardiol. 2020 October 31;5(5):540-548. doi: 10.1001/jamacardio.2020.0013 Current Interpretive Data was last revised on 2024. Non-HDL Cholesterol 125 mg/dL [facility] Comment: Interpretive Data Ages < or [...] last revised on 2018. Chol/HDL ratio 4 [facility] Blood 05/24/2024 7:38 AM ASSISTANT WINEMAKER 05/24/2024 9:21 AM ASSISTANT WINEMAKER Violet Gutierrez MD LAB BLOOD ORDERABLES Final Re sult Performing Organization Address City/State/[facility] Co de Phone Number [facility] Department [place] [address] * Colonoscopy (02/28/2022) Anatomical Region Laterality Modality Other Historical Provider ENDOSCOPY PROCEDURES Sakina l Result from Last 3 Months or Most Recently Relevant to Health Maintenance Insurance [place] [place] [address] EMPLOYEES [employer]YEES Care Teams Dispensary Technician Relationship Specialty Start Date End Date Charlotte Khan MD PCP - General Internal Medicine 06/24/20
--- OUTSIDE RECORDS SUMMARY | 2024-08-01 13:21 | XMS_ITS | Patient Health Summary ---
Author Organization [facility] Address [address] [place] [address] Care Team Providers Care Lean Sensei Name Role Phone Tracee Rose MD Primary Care Provider [phone] Note from [facility],non-owned Affiliates and Associated Physician Practices is amultiple site organization consisting of ambulatory clinics and hospital sitesin [place], [place], [place] and [place]. This disclosure is being madepursuant to the Care Everywhere program and may not contain all information available regarding this patient. Last updated 18.[facility] Allergies No known active allergies Medications * Be aware that medications may not be up to date on this document. Alwaysverify current medications with the patient. * OnabotulinumtoxinA (BOTOX IJ) * SUMAtriptan Succinate (IMITREX PO) * SUMAtriptan Succinate (IMITREX SC) * INDOMETHACIN PO * Topiramate (TOPAMAX PO) Social History Tobacco Use Types Packs/Day Years Used Date Smoking Tobacco: Never Smokeless Tobacco: Never Sex and Gender Information Value Date Recorded Sex Assigned at Not on file Gender Identity Not on file Sexual Orientation Not on file Last Filed Vital Signs Vital Sign Reading Time Taken Comments Blood Pressure 100/64 08/13/2017 1:02 PM MEDICAL AFFAIRS LEADER Pulse 72 08/13/2017 1:02 PM MEDICAL AFFAIRS LEADER Temperature 36.5 ??C (97.7 ??F) 08/13/2017 1:02 PM CS T Respiratory Rate 16 08/13/2017 1:02 PM MEDICAL AFFAIRS LEADER Oxygen Saturation 97% 08/09/2017 9:29 AM MEDICAL AFFAIRS LEADER Inhaled Oxygen Concentration - - Weight 54.9 kg (121 lb) 08/13/2017 1:02 PM MEDICAL AFFAIRS LEADER Height 157.5 cm (5' 2 ) 08/13/2017 1:02 PM MEDICAL AFFAIRS LEADER Body Mass Index 22.13 08/13/2017 1:02 PM MEDICAL AFFAIRS LEADER Procedures * INFLUENZA A+B - POINT OF CARE (AMB)(Performed 08/09/2017) Performed for Influenza * STREP A SCREEN - POINT OF CARE (AMB) STL(Performed 08/09/2017) Performed for Influenza * STREP A SCREEN - POINT OF CARE (AMB) STL(Performed 05/09/2017) Performed for Acute otitis externa of right ear, unspecified type Results * STREP A SCREEN (08/09/2017) Only the most recent of2 resultswithin the time period is included. Strep A Rapid POCT Negative Negative Strep A Internal Control Present Lot # [id number] Expiration Date [id number] Throat ENTIRE THROAT (SURFACE REGION OF NECK) / Unknown 08/09/2017 Jagjit [facility] - POINT OF CARE ORDERABLES * (ABNORMAL) INFLUENZA A+B - POINT OF CARE (AMB) (08/09/2017) Influenza A Antigen Rapid Positive(A) Negative Influenza B Antigen Rapid Negative Negative Influenza Internal Control present NEGATIVE - POSITIVE Influenza Lot Number [id number] Influenza Expiration Date Other NASOPHARYNGEAL SWAB / Unknown 08/09/2017 Jagjit Ruiz [facility] - POINT OF CARE ORDERABLES Care Teams Lean Sensei Relationship Specialty Start Date End Date Tracee Rose MD PCP - General Family Medicine 05/09/17
--- OUTSIDE RECORDS SUMMARY | 2024-08-01 13:21 | XMS_ITS | Referral Summary ---
Author Organization [facility] Address [address] [place] [address] Care Team Providers Care Crown Pouncer Name Role Phone Tracee Rose MD Primary Care Provider [phone] Source Comments [facility],non-owned Affiliates and Associated Physician Practices is amultiple site organization consisting of ambulatory clinics and hospital sitesin [place], [place], [place] and [place]. This disclosure is being madepursuant to the Care Everywhere program and may not contain all information available regarding this patient. Last updated 18.[facility] Allergies No known active allergies Medications * Be aware that medications may not be up to date on this document. Alwaysverify current medications with the patient. Medication Sig Dispensed Refills Start Date End Date Status OnabotulinumtoxinA (BOTOX IJ) Active SUMAtriptan Succinate (IMITREX PO) Active SUMAtriptan Succinate (IMITREX SC) Active INDOMETHACIN PO Active Topiramate (TOPAMAX PO) A ctive Social History Tobacco Use Types Packs/Day Years Used Date Smoking Tobacco: Never Smokeless Tobacco: Never Sex and Gender Information Value Date Recorded Sex Assigned at Not on file Gender Identity Not on file Sexual Orientation Not on file Last Filed Vital Signs Vital Sign Reading Time Taken Comments Blood Pressure 100/64 08/13/2017 1:02 PM SUPERMARKET MANAGER Pulse 72 08/13/2017 1:02 PM SUPERMARKET MANAGER Temperature 36.5 ??C (97.7 ??F) 08/13/2017 1:02 PM CS T Respiratory Rate 16 08/13/2017 1:02 PM SUPERMARKET MANAGER Oxygen Saturation 97% 08/09/2017 9:29 AM SUPERMARKET MANAGER Inhaled Oxygen Concentration - - Weight 54.9 kg (121 lb) 08/13/2017 1:02 PM SUPERMARKET MANAGER Height 157.5 cm (5' 2 ) 08/13/2017 1:02 PM SUPERMARKET MANAGER Body Mass Index 22.13 08/13/2017 1:02 PM SUPERMARKET MANAGER Plan of Treatment Not on file Care Teams Crown Pouncer Relationship Specialty Start Date End Date Tracee Rose MD PCP - General Family Medicine 05/09/17
--- OUTSIDE RECORDS SUMMARY | 2024-08-01 13:21 | XMS_ITS | Clinical Summary ---
Author Organization [facility] Address [address] [place] [address] Care Team Providers Care Director Of Land Acquisition Name Role Phone Tracee Rose MD Primary Care Provider [phone] Source Comments [facility],non-owned Affiliates and Associated Physician Practices is amultiple site organization consisting of ambulatory clinics and hospital sitesin [place], [place], [place] and [place]. This disclosure is being madepursuant to the Care Everywhere program and may not contain all information available regarding this patient. Last updated 18.[facility] Allergies No known active allergies Medications * Be aware that medications may not be up to date on this document. Alwaysverify current medications with the patient. Medication Sig Dispensed Refills Start Date End Date Status OnabotulinumtoxinA (BOTOX IJ) Active SUMAtriptan Succinate (IMITREX PO) Active SUMAtriptan Succinate (IMITREX SC) Active INDOMETHACIN PO Active Topiramate (TOPAMAX PO) A ctive Family History Medical History Relation Name Comments Hypertension Father Relation Name Status Comments Father Social History Tobacco Use Types Packs/Day Years Used Date Smoking Tobacco: Never Smokeless Tobacco: Never Sex and Gender Information Value Date Recorded Sex Assigned at Not on file Gender Identity Not on file Sexual Orientation Not on file Last Filed Vital Signs Vital Sign Reading Time Taken Comments Blood Pressure 100/64 08/13/2017 1:02 PM ENVIRONMENTAL SERVICES SUPERVISOR Pulse 72 08/13/2017 1:02 PM ENVIRONMENTAL SERVICES SUPERVISOR Temperature 36.5 ??C (97.7 ??F) 08/13/2017 1:02 PM CS T Respiratory Rate 16 08/13/2017 1:02 PM ENVIRONMENTAL SERVICES SUPERVISOR Oxygen Saturation 97% 08/09/2017 9:29 AM ENVIRONMENTAL SERVICES SUPERVISOR Inhaled Oxygen Concentration - - Weight 54.9 kg (121 lb) 08/13/2017 1:02 PM ENVIRONMENTAL SERVICES SUPERVISOR Height 157.5 cm (5' 2 ) 08/13/2017 1:02 PM ENVIRONMENTAL SERVICES SUPERVISOR Body Mass Index 22.13 08/13/2017 1:02 PM ENVIRONMENTAL SERVICES SUPERVISOR Plan of Treatment Health Maintenance Due Date Last Done Comments COLOGUARD (AGES 45-75) - COL ON CA SCREENING 1971 COLON MONITORING 1971 COLONOSCOPY - COLON CA SCREENING 1971 CT COLONOGRAPHY - COLON CA SCREENING 1971 Colorectal Cancer Screening 1971 FIT - COLON CA SCREENING 1971 FLEX SIG - COLON CA SCREENING 1971 LIPID TESTING 1971 MAMMOGRAM 1971 PAP SMEAR 1971 HIV SCREENING 1986 HEPATITIS C SCREENING 07/21/1989 DTAP/TDAP/TD VACCINES (1 - Tdap) 1990 HEPATITIS B VACCINE (1 of 3 - 19+ 3-dose series) 1990 PNEUMOCOCCAL VACCINE 50+ (1 of 1 - PCV) 2021 ZOSTER VACCINE (1 of 2) 2021 COVID-19 VACCINE (1 - 2023-2 5 season) 2024 INFLUENZA VACCINE (#1) 2024 DEPRESSION SCREENING 07/03/2024 HIB VACCINE Aged Out No longer eligi ble based on patient's age to complete this topic HPV VACCINE Aged Out No longer eligi ble based on patient's age to complete this topic MENINGOCOCCAL (Group B) VACCINE Aged Out No longer eligible based on patient's age to complete this topic MENINGOCOCCAL VACCINE Aged Out No abbie lul eligible based on patient's age to complete this topic PNEUMOCOCCAL VACCINE Aged Out No long er eligible based on patient's age to complete this topic Care Teams Director Of Land Acquisition Relationship Specialty Start Date End Date Rose, Tracee J, MD PCP - General Family Medicine 05/09/17
--- NOTE | 2024-08-01 13:43 | ED_ITS ---
HPI - URI/Sore Throat General Chief Complaint: Upper Respiratory Infection Stated Complaint: flu like symptoms History of Present Illness HPI Narrative: patient is a 54-year-old female, without significant past medical history, presents to [facility] with 1 week history of URI symptoms, including nasal congestion and a cough as well as nausea vomiting diarrhea. She has Zofran at home which she has taken intermittently for nausea with some relief. She denies hematochezia or melena. She has no focal abdominal pain, she denies any additional associated symptoms, recent travel or known sick contacts. Her daughter is also here as a patient with similar symptoms. Related Data Home Medications ?Medication ?Instructions ?Recorded ?Confirmed ?Last Taken ?Type dicyclomine 10 mg capsule 40 mg PO DAILY 03/13/24 03/13/24 Unknown History eszopiclone 1 mg tablet 1 mg PO HS 03/13/24 03/13/24 Unknown History pantoprazole 40 mg tablet,delayed 40 mg PO DAILY 03/13/24 03/13/24 Unknown History release rimegepant 75 mg disintegrating 75 mg PO PRN PRN Migraine Headache 03/13/24 03/13/24 Unknown History tablet (Nurtec ODT) topiramate 25 mg tablet 25 mg PO BID 03/13/24 03/13/24 Unknown History Allergies Allergy/AdvReac Type Severity Reaction Status Date / Time iodine AdvReac Mild Hives Verified 08/01/24 13:37 Review of Systems ENT: Reports system reviewed and no additional complaints, except as documented and Reports as per HPI Respiratory: Respiratory: Reports as per HPI and Reports no additional respiratory complaints Gastrointestinal: Gastrointestinal: Reports as per HPI and Reports no additional gastrointestinal complaints [facility] Past Medical History Medical History (Updated 08/01/24 @ 14:14 by RAMY Justice) Cerebral aneurysm Hx of migraines Surgical History Surgical History (Updated 03/27/20 @ 14:29 by Cr Irwin) Tubal ligation status Previous section H/O: hysterectomy Family History Family History (System 03/27/20 @ 14:29 by Cr Irwin) Mother Patient's mother is in good health Father Patient's father is in good health Grandparent DVT (deep venous thrombosis) Father Hypertension Other Diabetes mellitus Family history of attention deficit hyperactivity disorder (ADHD) Family history of migraine headaches Family history of transient ischemic attacks Social History Social History (System 03/27/20 @ 14:29 by Cr Irwin) Smoking status: Never smoker Alcohol intake: current Gender identity (if verbalized by the patient): Female Exam Const: General: ill appearing ( Patient appears to feel unwell however she does not appear toxically ill) Nutritional Appearance: well nourished Orientation/consciousness: patient oriented x3 Limitations: no limitations HENMT: Head: normal to inspection Ears: external ears normal Face/Nose/Sinus: Normal external nose present Face and sinus: normal facial exam Mouth: Yes Normal oral and palatal mucosa present Teeth and gingiva: dentition normal Throat: posterior oropharynx normal Eyes: Conjunctivae: conjunctivae normal Pupils: Equal, round and reactive pupils present Neck: Neck: normal visual inspection, no lymphadenopathy and no meningeal signs Chest: Chest palpation & inspection: normal inspection of the chest Resp: Effort & Inspection: normal respiratory effort Auscultation: clear to auscultation bilaterally Cardio: Rate: regular rate Rhythm: regular rhythm Other: heart rate is 84 and PMI well patient is lying down GI: GI Palp: Yes Soft to palpation Auscultation: normal bowel sounds Other: no tenderness, no focal mass or hernia, no percussive tenderness noted : General: Yes bladder normal to palpation Back/Spine/Pelvis: Back: no CVA tenderness Skin: General skin exam: normal color Rashes: no rashes Wounds: no wounds Neuro: General: patient oriented x3 Cranial nerves: Yes Nystagmus not present Speech: normal speech Gait exam (Neuro): Normal gait present Course Course Emergency Course: COVID influenza screening completed Level of Care: Express Care Visit ([id number]) Vital Signs Vital signs: Vital Signs Temperature 37.1 C 08/01/24 13:01 Pulse Rate 110 H 08/01/24 13:01 Respiratory Rate 18 08/01/24 13:01 Blood Pressure 99/74 L 08/01/24 13:01 Pulse Oximetry 100 08/01/24 13:01 Oxygen Delivery Room Air 08/01/24 13:01 Temperature 37.1 C 08/01/24 13:01 Pulse Rate 110 H 08/01/24 13:01 Respiratory Rate 18 08/01/24 13:01 Blood Pressure 99/74 L 08/01/24 13:01 Pulse Oximetry 100 08/01/24 13:01 Oxygen Delivery Room Air 08/01/24 13:01 MDM - URI/Sore Throat MDM Narrative Medical decision making narrative: patient is influenza positive, her symptoms have been ongoing for 1 week, she has therefore no longer a candidate for Tamiflu. Will treat with promethazine DM, pushing fluids, rest, Tylenol ibuprofen as directed [id number] for fever reduction or discomfort. Follow up with PCP in 3-5 days if symptoms are not resolving. Patient is agreeable plan Lab Data Labs: Lab Results 08/01/24 Range/Units 13:55 POC Influenza A Ag Positive (Negative) POC Influenza B Ag Negative (Negative) POC SARS CoV-2 Ag Negative (Negative) Discharge Plan Discharge Clinical Impression: Influenza Patient Disposition: Home, Self-Care Condition: Stable Instructions: Antibiotic Form, Influenza (ED) Additional Instructions: PUSH FLUIDS AND REST, CONTINUE TYLENOL AND/OR IBUPROFEN DIRECTED [id number] FOR FEVER REDUCTION. PROMETHAZINE DM FOR COUGH SUPPRESSION. REST. FOLLOW-UP WITH YOUR PRIMARY DOCTOR IN 3-5 DAYS IF SYMPTOMS ARE NOT RESOLVING Patient Language: Gambian Prescriptions: New promethazine-DM 6.25-15 mg/5 mL syrup 5 ml PO Q4-6H PRN (Reason: cough) Qty: 118 0RF No Action topiramate 25 mg tablet 25 mg PO BID pantoprazole 40 mg tablet,delayed release (DR/EC) 40 mg PO DAILY dicyclomine 10 mg capsule 40 mg PO DAILY eszopiclone 1 mg tablet 1 mg PO HS Nurtec ODT 75 mg tablet,disintegrating 75 mg PO PRN PRN (Reason: Migraine Headache) promethazine-DM 6.25-15 mg/5 mL syrup 5 ml PO Q4-6H PRN (Reason: cough) Qty: 118 0RF Premarin 0.45 mg tablet 0.45 mg PO DAILY Qty: 90 4RF Rx Instructions: cyclically Follow-up/Referrals: Bill,Charlotte Miller MD [Primary Care Provider] - Stand Alone Forms: Work/School Release IP Time of Disposition: 14:15
[2024-08-01 13:57] LABS: EDCOVIDSCREEN Negative (Negative); EDINFLUASCREEN Positive (Negative); EDINFLUBSCREEN Negative (Negative)
== END 2024-08-01 14:26 | disposition home or self-care (01) ==
PROVIDERS: Emergency Provider Nurse Practitioner Family; PCP Internal Medicine
DX: J10.1 Influenza due to other identified influenza virus with other respiratory manifestations (principal); Z20.822 Contact with and (suspected) exposure to COVID-19
CPT/HCPCS: 87426; 87804; 99213; G0463

== ENCOUNTER 2024-08-16 17:18 | Emergency (ER) | payer OTHER, SELFPAY ==
--- OUTSIDE RECORDS SUMMARY | 2024-08-16 17:20 | XMS_ITS | Clinical Summary ---
Author Organization [facility] Address [address] [place] [address] Care Team Providers Care Septic Tank Servicer Name Role Phone Charlotte Khan MD Primary [...] onabotulinumtoxin A (BOTOX) 200 unit injection 200 UnitsIndications:Int ractable chronic migraine without aura and without status migrainosus 200 Units OTHER Once for Clinic-Administer ed Medication 10/29/2024 Active onabotulinumtoxin A (BOTOX) 200 unit injection 200 UnitsIndications:Int ractable chronic migraine without aura and without status migrainosus 200 Units OTHER Once for Clinic-Administer ed Medication 08/06/2024 08/06/2024 Ended Active Problems Problem Noted Date Diagnosed Date Encounter for weight management 05/14/2024 Metabolic syndrome 05/14/2024 Class 1 obesity due to exces s calories without serious comorbidity with body mass index (BMI) of 31.0 to 31.9 in adult 05/14/2024 Special screening for malignant neoplasms, colon 01/20/2022 Overview (01/20/2022): Added automatically from request for surgery [id number] Migraine 06/16/2020 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 Assessment & Plan (08/23/2018 2:48 PM CONFIGURATION RELEASE MANAGER): For that reason, I have recommended voice therapy here at the [facility] [...] Encounters Date Type Department Care Team Description 08/16/2024 Orders Only [facility] General Neurology [address]th [address] [place] [id number] Maria Teresa Kelly Intractable chronic migraine without aura and without status migrainosus (Primary Dx) 08/06/2024 3:00 PM CONFIGURATION RELEASE MANAGER Procedure visit [facility] General Neurology [address] [place] [phone] Darya Jaime MD PhD Intractable chronic migraine without aura and without status migrainosus (Primary Dx) 07/30/2024 9:20 AM CONFIGURATION RELEASE MANAGER Office Visit [facility] [address] [place] [address] [place] [phone] Violet Gutierrez MD Encounter for weight [...] adult; Fatigue, unspecified type 06/21/2024 9:01 AM CONFIGURATION RELEASE MANAGER - 06/21/2024 11:59 PM CONFIGURATION RELEASE MANAGER Hospital Encounter [address] [place] [address] Encounter for screening mammogram for malignant neoplasm of breast Discharge Disposition: Discharge to home or self care 05/24/2024 7:25 AM CONFIGURATION RELEASE MANAGER Lab [address] [place] [address] Encounter for weight management; Metabolic syndrome; Class 1 obesity due to excess calories with serious comorbidity and body mass index (BMI) of 30.0 to 30.9 in adult 05/22/2024 Telephone [facility] [address] [place] [address] Medical Office Building [address], [address] [place] [address] Lilian Ward, IKER Prior Auth 05/21/2024 3:40 PM CONFIGURATION RELEASE MANAGER Office Visit [facility] [address] [facility] [address] [place] [address] Violet Gutierrez MD Encounter for [...] (BMI) of 30.0 to 30.9 in adult from Last 3 Months Immunizations Name Administration Dates Next Due Influenza, Trivalent, Cell Culture-based MDCK, Preservative Free, Antibiotic Free, Intramuscular 04/19/2024 Influenza, Unspecified 04/08/2024(Deferr ed: Patient Refused),04/04/2023,04/03/2021, 020,04/28/2018 Pfizer SARS-CoV-2 Monovalent Vaccination (12+ Yrs) PURPLE 12/12/2020,11/21/2020 Tdap 06/24/2020 Surgical History Surgery Date Site/Laterality Comments AR LIG/TRNSXJ FLP TUBE ABDL/VAG APPR UNI/BI Tubal Ligation - (Added by TW Conv) SINUS SURGERY Sinus Surgery - (Added by TW Conv) AR TOTAL ABDOMINAL HYSTERECT W/WO RMVL TUBE OVARY [...] on file Legal Sex Female 11:20 AM CONFIGURATION RELEASE MANAGER Gender Identity Not on file Sexual Orientation Not on file 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 Not on file Obstetrics History Last Filed Vital Signs Vital Sign Reading Time Taken Comments Blood Pressure 106/77 08/06/2024 2:34 PM CONFIGURATION RELEASE MANAGER Pulse 92 08/06/2024 2:34 PM CONFIGURATION RELEASE MANAGER Temperature 36.9 C (98.4 F) 08/06/2024 2:34 PM CONFIGURATION RELEASE MANAGER Respiratory Rate 16 02/28/2022 8:50 AM CDT Oxygen Saturation 98% 08/06/2024 2:34 PM CONFIGURATION RELEASE MANAGER Inhaled Oxygen Concentration - - Weight 64.9 kg (143 lb) 08/06/2024 2:34 PM CONFIGURATION RELEASE MANAGER Height 157.5 cm (5' 2 ) 08/06/2024 2:34 PM CONFIGURATION RELEASE MANAGER Body Mass Index 26.16 08/06/2024 2:34 PM CONFIGURATION RELEASE MANAGER Plan of Treatment Health Maintenance Due Date [...] Read Routine (OP Routine) 06/21/2024 9:14 AM CONFIGURATION RELEASE MANAGER Encounter for screening mammogram for malignant neoplasm of breast TSH Routine 05/24/2024 7:38 AM CONFIGURATION RELEASE MANAGER Encounter for weight management Metabolic syndrome Class 1 obesity due to excess calories with serious comorbidity and body mass index (BMI) of 30.0 to 30.9 in adult LIPID PANEL Routine 05/24/2024 7:38 AM CONFIGURATION RELEASE MANAGER Encounter for weight management Metabolic syndrome Class 1 obesity due to excess calories with serious comorbidity and body mass index (BMI) of 30.0 to 30.9 in adult VITAMIN B12 Routine 05/24/2024 7:38 AM CONFIGURATION RELEASE MANAGER Encounter for weight management Metabolic syndrome Class 1 obesity due to excess calories with serious comorbidity and body mass index (BMI) of 30.0 to 30.9 in adult VITAMIN D 25 HYDROXY Routine 05/24/2024 7:38 AM CONFIGURATION RELEASE MANAGER Encounter for weight management Metabolic syndrome Class 1 obesity due to excess calories with serious comorbidity and body mass index (BMI) of 30.0 to 30.9 in adult INSULIN, TOTAL Routine 05/24/2024 7:38 AM CONFIGURATION RELEASE MANAGER Encounter for weight management Metabolic syndrome Class 1 obesity due to excess calories with serious comorbidity and body mass index (BMI) of 30.0 to 30.9 in adult HEMOGLOBIN A1C Routine 05/24/2024 7:38 AM CONFIGURATION RELEASE MANAGER Encounter for weight management Metabolic syndrome Class 1 obesity due to excess calories with serious comorbidity and body mass index (BMI) of 30.0 to 30.9 in adult CRP (ACUTE PHASE) Routine 05/24/2024 7:3 8 AM CONFIGURATION RELEASE MANAGER Encounter for weight management Metabolic syndrome Class 1 obesity due to excess calories with serious comorbidity and body mass index (BMI) of 30.0 to 30.9 in adult COLONOSCOPY Routine 02/28/2022 from Last 3 Months or Most Recently Relevant to Health Maintenance Results * Screening Mammogram Bilateral W Shayan (06/21/2024 9:14 AM CONFIGURATION RELEASE MANAGER) Anatomical Region Laterality Modality Breast Bilateral Mammography Narrative 06/21/2024 3:24 PM CONFIGURATION RELEASE MANAGER Mammogram Technique: Bilateral Digital Breast Tomosynthesis, Bilateral C-view 2D Screening mammogram. Views obtained: bilateral craniocaudal and bilateral mediolateral oblique. Computer Aided Detection was performed. Mammogram Findings: The present examination has been compared to prior imaging studies performed at [facility] on 11/03/2016, 05/28/2019 and 08/20/2022. The breasts are heterogeneously dense, which may obscure small masses. There is no suspicious abnormality in either breast. Impression: There is no mammographic evidence of malignancy. Annual screening mammography is recommended. If supplemental screening is desired, breast MRI would be recommended in this patient with heterogeneously dense breasts. OVERALL FINAL ASSESSMENT: BI-RADS CATEGORY 1: Negative. Procedure Note Maria Teresa Mendoza MD - 06/21/2024 Mammogram Technique: Bilateral Digital Breast Tomosynthesis, Bilateral C-view 2D Screening mammogram. Views obtained: bilateral craniocaudal and bilateral mediolateral oblique. Computer Aided Detection was performed. Mammogram Findings: The present examination has been compared to prior imaging studies performed at [facility] on 11/03/2016, 05/28/2019 and 08/20/2022. The breasts [...] Vitamin D 25 hydroxy (05/24/2024 7:38 AM CONFIGURATION RELEASE MANAGER) Vitamin D 25-OH 33 30 - 80 ng/mL Blood 05/24/2024 7:38 AM CONFIGURATION RELEASE MANAGER 05/24/2024 9:21 AM CONFIGURATION RELEASE MANAGER Violet Gutierrez MD LAB BLOOD ORDERABLES Final Re sult [facility] [place] [address] * Insulin, total (05/24/2024 7:38 AM CONFIGURATION RELEASE MANAGER) Pathologist [facility] Insulin 6.8 2.6 - 25.0 mcIUnit/mL Blood 05/24/2024 7:38 AM CONFIGURATION RELEASE MANAGER 05/24/2024 9:21 AM CONFIGURATION RELEASE MANAGER Violet Gutierrez MD LAB BLOOD ORDERABLES Final Re sult [facility] [place] [address] * CRP (acute phase) (05/24/2024 7:38 AM CONFIGURATION RELEASE MANAGER) CRP 2.1 <=10.0 mg/L Blood 05/24/2024 7:38 AM CONFIGURATION RELEASE MANAGER 05/24/2024 9:21 AM CONFIGURATION RELEASE MANAGER Result [facility] Violet Gutierrez MD LAB BLOOD ORDERABLES Final Re sult Performing Organization Address City/[facility] Co de Phone Number [facility] [place] [address] * TSH (05/24/2024 7:38 AM CONFIGURATION RELEASE MANAGER) Pathologist [facility] Thyroid Stimulating Hormone 1.74 0.30 - 4.20 mcIUnit/mL Blood 05/24/2024 7:38 AM CONFIGURATION RELEASE MANAGER 05/24/2024 9:21 AM CONFIGURATION RELEASE MANAGER Result [facility] Violet Gutierrez MD LAB BLOOD ORDERABLES Final Re sult Performing Organization Address [facility] [place] [address] * Hemoglobin A1c (05/24/2024 7:38 AM CONFIGURATION RELEASE MANAGER) [facility] Hgb A1C 5.3 4.0 - 5.6 % Estimated Average Glucose 105 mg/dL [facility] Comment: The ADA recommends reporting an estimated Average Glucose (eAG) with all Hemoglobin A1c results using the equation derived from a study of 507 normal and diabetic adults. Minority populations were underrepresented and children were not included. (Diabetes Care 2020; 43(S1): S66-S76). The eAG is not equivalent to a fasting glucose. Blood 05/24/2024 7:38 AM CONFIGURATION RELEASE MANAGER 05/24/2024 9:22 AM CONFIGURATION RELEASE MANAGER Result [facility] Violet Gutierrez MD LAB BLOOD ORDERABLES Final Re sult Performing Organization Address [facility] [place] [address] * Vitamin B12 (05/24/2024 7:38 AM CONFIGURATION RELEASE MANAGER) [facility] Vitamin B12 382 230 - 1,250 pg/mL Blood 05/24/2024 7:38 AM CONFIGURATION RELEASE MANAGER 05/24/2024 9:21 AM CONFIGURATION RELEASE MANAGER us Violet Gutierrez MD LAB BLOOD ORDERABLES Final Re sult [facility] [place] [address] * Lipid panel (05/24/2024 7:38 AM CONFIGURATION RELEASE MANAGER) Cholesterol 170 30 - 199 mg/dL Comment: Interpretive Data Ages < or = 19 years Acceptable: <170 mg/dL Borderline high: 170-199 mg/dL High: >or= 200 mg/dL Ages > or = 20 years Desirable: <200 mg/dL Borderline high: 200-239 mg/dL High: >or= 240 mg/dL Literature References: 1. Expert Panel on Integrated Guidelines for Cardiovascular Health and Risk Reduction in Children and Adolescents. Pediatrics 2011;128:S213 2. NCEP Expert Panel. Circulation 2004;110:227 Current Interpretive Data was last revised on 2018. Triglycerides 44 <=149 mg/dL [facility] Comment: Interpretive Data Ages < or = 9 years Acceptable: <75 mg/dL Borderline high: 75-99 mg/dL High: >or= 100 mg/dL Ages 10 to 20 years Acceptable: <90 mg/dL Borderline high: 90-129 mg/dL High: >or= 130 mg/dL Ages > or = 20 years Desirable: <150 mg/dL Borderline high: 150-199 mg/dL High: 200-499 mg/dL Very high: >or= 499 mg/dL Literature References: 1. Expert Panel on Integrated Guidelines for Cardiovascular Health and Risk Reduction in Children and Adolescents. Pediatrics 2011;128:S213 2. NCEP Expert Panel. Circulation 2004;110:227 Current Interpretive Data was last revised on 2018. HDL 45 >=40 mg/dL [facility] Comment: Interpretive Data Ages < or = 19 years Acceptable: >45 mg/dL Borderline low: 40-45 mg/dL Low: <40 mg/dL Ages > or = 20 years Desirable: >or= 60 mg/dL Low: <40 mg/dL Literature References: 1. Expert Panel on Integrated Guidelines for Cardiovascular Health and Risk Reduction in Children and Adolescents. Pediatrics 2011;128:S213 2. NCEP Expert Panel. Circulation 2004;110:227 Current Interpretive Data was last revised on 2018. LDL, calculated 116 <=129 mg/dL [facility] Comment: Interpretive Data Ages < or = 19 years Acceptable: <110 mg/dL Borderline high: 110-129 mg/dL High: >or= 130 mg/dL Ages > or = 20 years Optimal: <100 mg/dL Near optimal: 100-129 mg/dL Borderline high: 130-159 mg/dL High: >160 mg/dL Calculated using the [place] LDL-C estimating [...] revised on 2024. Non-HDL Cholesterol 125 mg/dL [facility] Comment: Interpretive Data Ages < or = 19 years Acceptable: <120 mg/dL Borderline high: 120-144 mg/dL High: >145 mg/dL Ages > or = 20 years When triglycerides are >200 mg/dL, Non-HDL cholesterol is a secondary target of therapy with treatment goals that are 30 mg/dL greater than the LDL cholesterol target. Literature References: 1. Expert Panel on Integrated Guidelines for Cardiovascular Health and Risk Reduction in Children and Adolescents. Pediatrics 2011;128:S213 2. NCEP Expert Panel. Circulation 2004;110:227 Current Interpretive Data was last revised on 2018. Chol/HDL ratio 4 [facility] Blood 05/24/2024 7:38 AM CONFIGURATION RELEASE MANAGER 05/24/2024 9:21 AM CONFIGURATION RELEASE MANAGER us Violet Gutierrez MD LAB BLOOD ORDERABLES Final Re sult [facility] [place] [address] * Colonoscopy (02/28/2022) Anatomical Region Laterality Modality Other us Historical Provider ENDOSCOPY PROCEDURES Sakina l Result from Last 3 Months or Most Recently Relevant to Health Maintenance Insurance EMPLOYEES [employer] EMPLOYEES [employer] EMPLOYEES Care Teams Septic Tank Servicer Relationship Specialty Start Date End Date Charlotte Khan MD PCP - General Internal Medicine 06/24/20
--- OUTSIDE RECORDS SUMMARY | 2024-08-16 17:20 | XMS_ITS | Encounter Summary ---
Author Organization [facility] Address [address] [place] [address] Phone Care Team Providers Care Paper Deliverer Name Role Phone Charlotte Khan MD Primary Care Provider Encounter Details Date Type Department Care Team (Late st Contact Info) Description 08/01/2023 Documentation [facility] Neuro Sleep [address]th [address] [place] [address] [place], [facility] Social History Tobacco Use Types Packs/Day Years [...] on file Legal Sex Female 11:20 AM SALES PROGRAM MANAGER Gender Identity Not on file Sexual Orientation Not on file 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
--- OUTSIDE RECORDS SUMMARY | 2024-08-16 17:20 | XMS_ITS | Referral Summary ---
Author Organization [facility] Address [address] [place] [address] Care Team Providers Care Supervisor Plate Pasting Name Role Phone Charlotte Khan MD Primary Care Provider Encounters Date Type Department Care Team Description 08/16/2024 Orders Only [facility] General Neurology [address] [place] [address] Maria Teresa Kelly Intractable chronic migraine without aura and without status migrainosus (Primary Dx) 08/06/2024 3:00 PM FACILITIES MANAGEMENT EXECUTIVE Procedure visit [facility] General Neurology [address] [place] [address] Darya Jaime MD PhD Intractable chronic migraine without aura and without status migrainosus (Primary Dx) 07/30/2024 9:20 AM FACILITIES MANAGEMENT EXECUTIVE Office Visit [facility] Diabetes and Nutrition Services [address] [place] [address] [address] [place] [id number] Violet Gutierrez MD Encounter for weight management [...] adult; Fatigue, unspecified type 06/21/2024 9:01 AM FACILITIES MANAGEMENT EXECUTIVE - 06/21/2024 11:59 PM FACILITIES MANAGEMENT EXECUTIVE Hospital Encounter [address] [place] [address] Encounter for screening mammogram for malignant neoplasm of breast Discharge Disposition: Discharge to home or self care 05/24/2024 7:25 AM FACILITIES MANAGEMENT EXECUTIVE Lab [facility] [address] [place] [address] [address] [place] [address] Encounter for weight management; Metabolic syndrome; Class 1 obesity due to excess calories with serious comorbidity and body mass index (BMI) of 30.0 to 30.9 in adult 05/22/2024 Telephone [facility] Diabetes [facility] [address] [facility] [address] [place] [address] Lilian Ward, CASE SUPERVISOR Prior Auth 05/21/2024 3:40 PM FACILITIES MANAGEMENT EXECUTIVE Office Visit [facility] Diabetes [facility] [address] [place] [address] [address] [place] [address] Violet Gutierrez MD Encounter for [...] 30.9 in adult from Last 3 Months Allergies No known [...] (01/20/2022): Added automatically from request for surgery [id number] Migraine 06/16/2020 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 Not on file Last Filed Vital Signs Vital Sign Reading Time Taken Comments Blood Pressure 106/77 08/06/2024 2:34 PM FACILITIES MANAGEMENT EXECUTIVE Pulse 92 08/06/2024 2:34 PM FACILITIES MANAGEMENT EXECUTIVE Temperature 36.9 C (98.4 F) 08/06/2024 2:34 PM FACILITIES MANAGEMENT EXECUTIVE Respiratory Rate 16 02/28/2022 8:50 AM CDT Oxygen Saturation 98% 08/06/2024 2:34 PM FACILITIES MANAGEMENT EXECUTIVE Inhaled Oxygen Concentration - - Weight 64.9 kg (143 lb) 08/06/2024 2:34 PM FACILITIES MANAGEMENT EXECUTIVE Height 157.5 cm (5' 2 ) 08/06/2024 2:34 PM FACILITIES MANAGEMENT EXECUTIVE Body Mass Index 26.16 08/06/2024 2:34 PM FACILITIES MANAGEMENT EXECUTIVE Plan of Treatment Not on file Procedures Procedure Name Priority Date/Time Associated Diagnosis Comments SCREENING MAMMOGRAM BILATERAL W BINDU Schedule Routine, Read Routine (OP Routine) 06/21/2024 9:14 AM FACILITIES MANAGEMENT EXECUTIVE Encounter for screening mammogram for malignant neoplasm of breast TSH Routine 05/24/2024 7:38 AM FACILITIES MANAGEMENT EXECUTIVE Encounter for weight management Metabolic syndrome Class 1 obesity due to excess calories with serious comorbidity and body mass index (BMI) of 30.0 to 30.9 in adult LIPID PANEL Routine 05/24/2024 7:38 AM FACILITIES MANAGEMENT EXECUTIVE Encounter for weight management Metabolic syndrome Class 1 obesity due to excess calories with serious comorbidity and body mass index (BMI) of 30.0 to 30.9 in adult VITAMIN B12 Routine 05/24/2024 7:38 AM FACILITIES MANAGEMENT EXECUTIVE Encounter for weight management Metabolic syndrome Class 1 obesity due to excess calories with serious comorbidity and body mass index (BMI) of 30.0 to 30.9 in adult VITAMIN D 25 HYDROXY Routine 05/24/2024 7:38 AM FACILITIES MANAGEMENT EXECUTIVE Encounter for weight management Metabolic syndrome Class 1 obesity due to excess calories with serious comorbidity and body mass index (BMI) of 30.0 to 30.9 in adult INSULIN, TOTAL Routine 05/24/2024 7:38 AM FACILITIES MANAGEMENT EXECUTIVE Encounter for weight management Metabolic syndrome Class 1 obesity due to excess calories with serious comorbidity and body mass index (BMI) of 30.0 to 30.9 in adult HEMOGLOBIN A1C Routine 05/24/2024 7:38 AM FACILITIES MANAGEMENT EXECUTIVE Encounter for weight management Metabolic syndrome Class 1 obesity due to excess calories with serious comorbidity and body mass index (BMI) of 30.0 to 30.9 in adult CRP (ACUTE PHASE) Routine 05/24/2024 7:3 8 AM FACILITIES MANAGEMENT EXECUTIVE Encounter for weight management Metabolic syndrome Class 1 obesity due to excess calories with serious comorbidity and body mass index (BMI) of 30.0 to 30.9 in adult COLONOSCOPY Routine 02/28/2022 from Last 3 Months or Most Recently Relevant to Health Maintenance Results * Screening Mammogram Bilateral W Bindu (06/21/2024 9:14 AM FACILITIES MANAGEMENT EXECUTIVE) Anatomical Region Laterality Modality Breast Bilateral Mammography Narrative 06/21/2024 3:24 PM FACILITIES MANAGEMENT EXECUTIVE Mammogram Technique: Bilateral Digital Breast Tomosynthesis, Bilateral C-view 2D Screening mammogram. Views obtained: bilateral craniocaudal and bilateral mediolateral oblique. Computer Aided Detection was performed. Mammogram Findings: The present examination has been compared to prior imaging studies performed at [facility] on 11/03/2016, 05/28/2019 and 08/20/2022. The [...] compared to prior imaging studies performed at [facility] on 11/03/2016, 05/28/2019 and 08/20/2022. The [...] Vitamin D 25 hydroxy (05/24/2024 7:38 AM FACILITIES MANAGEMENT EXECUTIVE) Vitamin D 25-OH 33 30 - 80 ng/mL Blood 05/24/2024 7:38 AM FACILITIES MANAGEMENT EXECUTIVE 05/24/2024 9:21 AM FACILITIES MANAGEMENT EXECUTIVE Violet Gutierrez MD LAB BLOOD ORDERABLES Final Re sult Performing Organization Address City/[facility] Co de Phone Number [facility] Department [place] [address] * Insulin, total (05/24/2024 7:38 AM FACILITIES MANAGEMENT EXECUTIVE) Pathologist [facility] Insulin 6.8 2.6 - 25.0 mcIUnit/mL Blood 05/24/2024 7:38 AM FACILITIES MANAGEMENT EXECUTIVE 05/24/2024 9:21 AM FACILITIES MANAGEMENT EXECUTIVE Violet Gutierrez MD LAB BLOOD ORDERABLES Final Re sult [facility] Department [place] [address] * CRP (acute phase) (05/24/2024 7:38 AM FACILITIES MANAGEMENT EXECUTIVE) CRP 2.1 <=10.0 mg/L Blood 05/24/2024 7:38 AM FACILITIES MANAGEMENT EXECUTIVE 05/24/2024 9:21 AM FACILITIES MANAGEMENT EXECUTIVE Violet Gutierrez MD LAB BLOOD ORDERABLES Final Re sult Performing Organization Address City/[facility] Co de Phone Number [facility] [place] [address] * TSH (05/24/2024 7:38 AM FACILITIES MANAGEMENT EXECUTIVE) Pathologist [facility] Thyroid Stimulating Hormone 1.74 0.30 - 4.20 mcIUnit/mL Blood 05/24/2024 7:38 AM FACILITIES MANAGEMENT EXECUTIVE 05/24/2024 9:21 AM FACILITIES MANAGEMENT EXECUTIVE Violet Gutierrez MD LAB BLOOD ORDERABLES Final Re sult Performing Organization Address [facility] [place] [address] * Hemoglobin A1c (05/24/2024 7:38 AM FACILITIES MANAGEMENT EXECUTIVE) [facility] Hgb A1C 5.3 4.0 - 5.6 % Estimated Average Glucose 105 mg/dL [facility] Comment: The ADA recommends reporting an estimated Average Glucose (eAG) with all Hemoglobin A1c results using the equation derived from a study of 507 normal and diabetic adults. Minority populations were underrepresented and children were not included. (Diabetes Care 2020; 43(S1): S66-S76). The eAG is not equivalent to a fasting glucose. Blood 05/24/2024 7:38 AM FACILITIES MANAGEMENT EXECUTIVE 05/24/2024 9:22 AM FACILITIES MANAGEMENT EXECUTIVE Violet Gutierrez MD LAB BLOOD ORDERABLES Final Re sult Performing Organization Address [facility] Co de Phone Number [facility] [place] [address] * Vitamin B12 (05/24/2024 7:38 AM FACILITIES MANAGEMENT EXECUTIVE) [facility] Vitamin B12 382 230 - 1,250 pg/mL Blood 05/24/2024 7:38 AM FACILITIES MANAGEMENT EXECUTIVE 05/24/2024 9:21 AM FACILITIES MANAGEMENT EXECUTIVE us Violet Gutierrez MD LAB BLOOD ORDERABLES Final Re sult [facility] Department [place] [address] * Lipid panel (05/24/2024 7:38 AM FACILITIES MANAGEMENT EXECUTIVE) Cholesterol 170 30 - 199 mg/dL Comment: [...] revised on 2018. Triglycerides 44 <=149 mg/dL [facility] Comment: Interpretive Data Ages < or = [...] revised on 2018. HDL 45 >=40 mg/dL [facility] Comment: Interpretive Data Ages < or = [...] on 2018. LDL, calculated 116 <=129 mg/dL [facility] Comment: Interpretive Data Ages < or = [...] 3. Linwood Hays et al. GIANCARLO Cardiol. 2019October 31;5(5):540-548. doi: 10.1001/jamacardio.2020.0013 Current Interpretive Data was last revised on 2024. Non-HDL Cholesterol 125 mg/dL [facility] Comment: Interpretive Data Ages < or = [...] last revised on 2018. Chol/HDL ratio 4 [facility] Blood 05/24/2024 7:38 AM FACILITIES MANAGEMENT EXECUTIVE 05/24/2024 9:21 AM FACILITIES MANAGEMENT EXECUTIVE us Violet Gutierrez MD LAB BLOOD ORDERABLES Final Re sult [facility] Department [place] [address] * Colonoscopy (02/28/2022) Anatomical Region Laterality Modality Other us Historical Provider ENDOSCOPY PROCEDURES Sakina l Result from Last 3 Months or Most Recently Relevant to Health Maintenance Insurance EMPLOYEES EMPLOYEES [employer] EM[employer]OYEES Care Teams Supervisor Plate Pasting Relationship Specialty Start Date End Date Charlotte Khan MD PCP - General Internal Medicine 06/24/20
--- OUTSIDE RECORDS SUMMARY | 2024-08-16 17:20 | XMS_ITS | Referral Summary ---
Author Organization [facility] Address [address] [place] [address] Care Team Providers Care Social Work Program Coordinator Name Role Phone Tracee Rose MD Primary Care Provider [phone] Source Comments [facility],non-owned Affiliates and Associated Physician Practices is amultiple site organization consisting of ambulatory clinics and hospital sitesin [place], [place], [place] and [place]. This disclosure is being madepursuant to the Care Everywhere program and may not contain all information available regarding this patient. Last updated 18.[employer] Allergies No known active allergies Medications * [...] Comments Blood Pressure 100/64 08/13/2017 1:02 PM PERFORATING MACHINE OPERATOR Pulse 72 08/13/2017 1:02 PM PERFORATING MACHINE OPERATOR Temperature 36.5 C (97.7 F) 08/13/2017 1:02 PM PERFORATING MACHINE OPERATOR Respiratory Rate 16 08/13/2017 1:02 PM PERFORATING MACHINE OPERATOR Oxygen Saturation 97% 08/09/2017 9:29 AM PERFORATING MACHINE OPERATOR Inhaled Oxygen Concentration - - Weight 54.9 kg (121 lb) 08/13/2017 1:02 PM PERFORATING MACHINE OPERATOR Height 157.5 cm (5' 2 ) 08/13/2017 1:02 PM PERFORATING MACHINE OPERATOR Body Mass Index 22.13 08/13/2017 1:02 PM PERFORATING MACHINE OPERATOR Plan of Treatment Not on file Care Teams Social Work Program Coordinator Relationship Specialty Start Date End Date Tracee Rose MD PCP - General Family Medicine 05/09/17
--- OUTSIDE RECORDS SUMMARY | 2024-08-16 17:20 | XMS_ITS | Clinical Summary ---
Author Organization [facility] Address [address] [facility] [place] [address] Care Team Providers Care Labor Contractor Name Role Phone Tracee Rose MD Primary Care Provider [phone] [facility],non-owned Affiliates and Associated Physician Practices is amultiple site organization consisting of ambulatory clinics and hospital sitesin [place], [place], [place] and [place]. This disclosure is being madepursuant to the Care Everywhere program and may not contain all information available regarding this patient. Last updated 18.[facility] [employer] Allergies No known active allergies Medications * [...] Comments Blood Pressure 100/64 08/13/2017 1:02 PM SPOT MAN Pulse 72 08/13/2017 1:02 PM SPOT MAN Temperature 36.5 C (97.7 F) 08/13/2017 1:02 PM SPOT MAN Respiratory Rate 16 08/13/2017 1:02 PM SPOT MAN Oxygen Saturation 97% 08/09/2017 9:29 AM SPOT MAN Inhaled Oxygen Concentration - - Weight 54.9 kg (121 lb) 08/13/2017 1:02 PM SPOT MAN Height 157.5 cm (5' 2 ) 08/13/2017 1:02 PM SPOT MAN Body Mass Index 22.13 08/13/2017 1:02 PM SPOT MAN Plan of Treatment Health Maintenance Due Date [...] age to complete this topic Care Teams Labor Contractor Relationship Specialty Start Date End Date Tracee Rose MD PCP - General Family Medicine 05/09/17
--- OUTSIDE RECORDS SUMMARY | 2024-08-16 17:20 | XMS_ITS | Patient Health Summary ---
Author Organization [facility] Address [address] [facility] [place] [address] Care Team Providers Care Pharmacy Sales Representative Name Role Phone Tracee Rose MD Primary Care Provider [phone] [facility] from [facility],non-owned Affiliates and Associated Physician Practices is amultiple site organization consisting of ambulatory clinics and hospital sitesin [place], [place], [place] and [place]. This disclosure is being madepursuant to the Care Everywhere program and may not contain all information available regarding this patient. Last updated 18.[facility] Allergies No known active allergies Medications * [...] Comments Blood Pressure 100/64 08/13/2017 1:02 PM PARKING MANAGER Pulse 72 08/13/2017 1:02 PM PARKING MANAGER Temperature 36.5 C (97.7 F) 08/13/2017 1:02 PM PARKING MANAGER Respiratory Rate 16 08/13/2017 1:02 PM PARKING MANAGER Oxygen Saturation 97% 08/09/2017 9:29 AM PARKING MANAGER Inhaled Oxygen Concentration - - Weight 54.9 kg (121 lb) 08/13/2017 1:02 PM PARKING MANAGER Height 157.5 cm (5' 2 ) 08/13/2017 1:02 PM PARKING MANAGER Body Mass Index 22.13 08/13/2017 1:02 PM PARKING MANAGER Procedures * INFLUENZA A+B - POINT OF [...] Strep A Internal Control Present Lot # [id number] Expiration Date [id number] Throat ENTIRE THROAT (SURFACE REGION OF NECK) / Unknown 08/09/2017 Jagjit Ruiz [facility] - POINT OF CARE ORDERABLES * (ABNORMAL) INFLUENZA A+B - POINT OF CARE (AMB) (08/09/2017) Influenza A Antigen Rapid Positive(A) Negative Influenza B Antigen Rapid Negative Negative Influenza Internal Control present NEGATIVE - POSITIVE Influenza Lot Number [id number] Influenza Expiration Date Other NASOPHARYNGEAL SWAB / Unknown 08/09/2017 Jagjit Ruiz [facility] - POINT OF CARE ORDERABLES Care Teams Pharmacy Sales Representative Relationship Specialty Start Date End Date Tracee Rose MD PCP - General Family Medicine 05/09/17
--- OUTSIDE RECORDS SUMMARY | 2024-08-16 17:20 | XMS_ITS | Encounter Summary ---
Author Organization [facility] Address [address] [place] [address] Phone Care Team Providers Care Material Requisitioner Name Role Phone Charlotte Khan MD Primary Care Provider Reason for Referral * Medication Authorization (Routine) - Pending Review Specialty Diagnoses / Procedures Referred By Faby t Referred To Contact Diagnoses Intractable chronic migraine without aura and without status migrainosus Darya Jaime MD PhD [address] [place] [address] Phone: tel: fax: Referral ID Status Reason Start Date Expiration Date V isits Requested Visits Authorized [id number] Pending Review 10/29/2024 11/28/2025 1 1 OMER EXPERIENCE PROFESSIONAL Encounter Details Date Type Department Care Team (Late st Contact Info) Description 08/16/2024 Orders Only [facility] General Neurology [address] [facility] 6[address] [place] [address] Maria Teresa Kelly Intractable chronic migraine without aura and without status migrainosus (Primary Dx) Social History Tobacco Use Types Packs/Day Years [...] on file Legal Sex Female 11:20 AM CUSTOMER EXPERIENCE PROFESSIONAL Gender Identity Not on file Sexual Orientation Not on file 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 Not on file documented as of this encounter Plan of Treatment Not on file documented as of this encounter Visit Diagnoses Diagnosis Intractable chronic migraine without aura and without status migrainosus- Primary documented in this encounter Orders Medications Ordered That Jann ht Not Have Been Administered Count Last Ordered Date First Ordered Date onabotulinumtoxin A (BOTOX) 200 unit injection 200 Units 1 08/16/2024 documented in this encounter Care Teams Material Requisitioner Relationship Specialty Start Date End Date Charlotte Khan MD PCP - General Internal Medicine 06/24/20 documented as of this encounter
--- OUTSIDE RECORDS SUMMARY | 2024-08-16 17:20 | XMS_ITS | Clinical Summary ---
Author Organization [facility] Care Team Providers Care Call Or Contact Centre Manager Name Role Phone Unavailable Primary Care Provider Unavailabl e Social History Tobacco Use Types Packs/Day Years Used Date Smoking Tobacco: Never Assessed Comments Unknown Sex and Gender Information Value Date Recorded Sex Assigned at Not on file Legal Sex Female 8:21 AM COMPOTYPE OPERATOR Gender Identity Not on file Sexual Orientation [...]
[2024-08-16 17:26] VITALS: BP 122/80; PULSE 93; RESP 14; TEMP 36.1; O2SAT 100
--- NOTE | 2024-08-16 17:27 | ED_ITS ---
HPI - Ear Problem General Chief complaint: Ear Stated complaint: Bilateral EAR PAIN Time Seen by Provider: 08/16/24 17:30 Source: patient Mode of arrival: ambulatory Limitations: no limitations History of Present Illness HPI Narrative: Melina Hernandez is a 54-year-old female patient presenting to the clinic today with complaints of bilateral ear pain. She reports she has had cough and congestion for over a week and has had what feels like fluid in her ears. States she has been trying Advil cold and Sinus as well as Sudafed without relief. Related Data Home Medications ?Medication ?Instructions ?Recorded ?Confirmed ?Last Taken ?Type eszopiclone 1 mg tablet 1 mg PO HS 03/13/24 03/13/24 Unknown History pantoprazole 40 mg tablet,delayed 40 mg PO DAILY 03/13/24 03/13/24 Unknown History release rimegepant 75 mg disintegrating 75 mg PO PRN PRN Migraine Headache 03/13/24 03/13/24 Unknown History tablet (Nurtec ODT) topiramate 25 mg tablet 25 mg PO BID 03/13/24 03/13/24 Unknown History onabotulinumtoxinA 100 unit 15 unit IM ONCE 08/16/24 Unknown History solution for injection (Botox) tirzepatide (weight loss) 2.5 mg subcut 08/16/24 Unknown History mg/0.5 mL subcutaneous pen injector (Zepbound) Allergies Allergy/AdvReac Type Severity Reaction Status Date / Time iodine Allergy Mild Hives Verified 08/16/24 17:32 Review of Systems Review of Systems: Pertinent positives per HPI. Patient denies any fever, chills, rash, headache, visual changes, dizziness,sore throat, shortness of breath, chest pain, palpitations, nausea, vomiting, diarrhea, constipation, abdominal pain, or any urinary issues. [facility] Past Medical History Medical History (Updated 08/16/24 @ 17:38 by Sacha Moore APRN) Cerebral aneurysm Hx of migraines Surgical History Surgical History (Updated 03/27/20 @ 14:29 by Cr Irwin) Tubal ligation status Previous section H/O: hysterectomy Family History Family History (System 03/27/20 @ 14:29 by Cr Irwin) Mother Patient's mother is in good health Father Patient's father is in good health Grandparent DVT (deep venous thrombosis) Father Hypertension Other Diabetes mellitus Family history of attention deficit hyperactivity disorder (ADHD) Family history of migraine headaches Family history of transient ischemic attacks Social History Social History (System 03/27/20 @ 14:29 by Cr Irwin) Smoking status: Never smoker Alcohol intake: current Gender identity (if verbalized by the patient): Female Comments At the time of my signature, I reviewed and agree with the nursing past medical, surgical, social, and family history. There is no relevant family history pertinent to the patient complaint. Exam Narrative: General: Well-developed, well nourished, in no apparent distress Head: Normocephalic, atraumatic Eyes: Pupils equally round and reactive to light bilaterally, EOM intact, sclera and conjunctive clear, no discharge, lids normal Ears: TMs intact, bulging, red, ear canals clear, no drainage, grossly hearing normal. Nose: Nares patent, clear discharge, no inflammation, no sinus tenderness. Mouth: Oropharynx without lesions or masses, good dentition, MMM. Neck: Supple, trachea midline, no enlargement of anterior or posterior cervical nodes, no thyroid masses or goiter palpable. Cardio: Regular rate and rhythm, s1 and s2 normal, no murmur appreciated. Resp: Clear to auscultation bilaterally anteriorly and posteriorly, no rhonchi, rales, wheezing or rubs Course Course Emergency Course: Portions of this record may have been created with voice recognition software. Level of Care: Express Care Visit Vital Signs Vital signs: Vital Signs Temperature 36.1 C L 08/16/24 17: Pulse Rate 93 08/16/24 17: Respiratory Rate 08/16/24 17: Blood Pressure 122/80 08/16/24 17:26 Pulse Oximetry 100 08/16/24 17:26 Oxygen Delivery Room Air 08/16/24 17: Temperature 36.1 C L 08/16/24 17: Pulse Rate 93 08/16/24 17:26 Respiratory Rate 08/16/24 17: Blood Pressure 122/80 08/16/24 17:26 Pulse Oximetry 100 08/16/24 17: Oxygen Delivery Room Air 08/16/24 17: Vital signs reviewed Medical Decision Making MDM Narrative Medical decision making narrative: At the time of visit patient is resting comfortably on the exam table. Patient appears to be nontoxic. Plan: I suspect patient has bilateral otitis media. Prescription for predni sone and amoxicillin was sent to the pharmacy. Supportive measures were discussed with the patient and they voiced understanding discharge instructions and agrees to treatment plan. Return precautions reviewed Differential Diagnosis Differential Diagnosis: Otitis media, otitis externa, cerumen impaction, upper respiratory infection, serous otitis Vital Signs Vital Signs: Vital Signs Temperature 36.1 C L 08/16/24 17:26 Pulse Rate 93 08/16/24 17:26 Respiratory Rate 08/16/24 17:26 Blood Pressure 122/80 08/16/24 17:26 Pulse Oximetry 100 08/16/24 17:26 Oxygen Delivery Room Air 08/16/24 17: Temperature 36.1 C L 08/16/24 17:26 Pulse Rate 93 08/16/24 17:26 Respiratory Rate 14 08/16/24 17:26 Blood Pressure 122/80 08/16/24 17:26 Pulse Oximetry 100 08/16/24 17:26 Oxygen Delivery Room Air 08/16/24 17:26 Discharge Plan Discharge Clinical Impression: Bilateral otitis media Qualifiers: Otitis media type: suppurative Chronicity: acute Recurrence: non-recurrent Spontaneous tympanic membrane rupture: without spontaneous rupture Qualified Code(s): H66.003 - Acute suppurative otitis media without spontaneous rupture of ear drum, bilateral Patient Disposition: Home, Self-Care Condition: Stable Instructions: Antibiotic Form, Ear Infection (ED) Additional Instructions: Take any prescribed medications only as directed-amoxicillin and prednisone Tylenol/motrin as needed for pain May use heating pad to alleviate pain If you get recurrent ear infections it may be warranted to follow up with ENT. Follow up with your PCP in 3-5 days if symptoms persist. Patient Language: [place] Prescriptions: New amoxicillin 875 mg tablet 875 mg PO Q12H 10 Days Qty: 20 0RF prednisone 20 mg tablet 40 mg PO DAILY 5 Days Qty: 10 0RF No Action topiramate 25 mg tablet 25 mg PO BID pantoprazole 40 mg tablet,delayed release (DR/EC) 40 mg PO DAILY eszopiclone 1 mg tablet 1 mg PO HS Nurtec ODT 75 mg tablet,disintegrating 75 mg PO PRN PRN (Reason: Migraine Headache) Zepbound 2.5 mg/0.5 mL pen injector SUBCUT Botox 100 unit recon soln 15 unit IM ONCE Rx Instructions: as a single dose promethazine-DM 6.25-15 mg/5 mL syrup 5 ml PO Q4-6H PRN (Reason: cough) Qty: 118 0RF Follow-up/Referrals: Bill,Charlotte Miller MD [Primary Care Provider] - Time of Disposition: 17:38 Quality NIHSS Nursing Documentation ED NIHSS nursing documentation: reviewed/agree
== END 2024-08-16 17:43 | disposition home or self-care (01) ==
PROVIDERS: Emergency Provider Nurse Practitioner Family; PCP Internal Medicine
DX: H66.003 Acute suppurative otitis media without spontaneous rupture of ear drum, bilateral (principal)
CPT/HCPCS: 99213; G0463

== ENCOUNTER 2025-04-04 08:18 | Emergency (ER) | payer OTHER, SELFPAY ==
--- OUTSIDE RECORDS SUMMARY | 2025-04-04 08:24 | XMS_ITS | Clinical Summary ---
Author Organization [facility] Address [address] [place] [address] Care Team Providers Care Pigment Weigher Name Role Phone Tracee Rose MD Primary Care Provider [phone] Source Comments [facility],non-owned Affiliates and Associated Physician Practices is amultiple site organization consisting of ambulatory clinics and hospital sitesin [place], [place], [place] and [place]. This disclosure is being madepursuant to the Care Everywhere program and may not contain all information available regarding this patient. Last updated 18.[facility] Allergies No known active allergies Medications * Be aware that medications may not be up to date on this document. Alwaysverify current medications with the patient. OnabotulinumtoxinA (BOTOX IJ) Active SUMAtriptan Succinate (IMITREX PO) Active SUMAtriptan Succinate (IMITREX SC) Active INDOMETHACIN PO Acti ve Topiramate (TOPAMAX PO) Active Family History Medical History Relation Name Comments Hypertension Father Relation Name Status Comments Father Social History Tobacco Use Types Packs/Day Years Used Date Smoking Tobacco: Never Smokeless Tobacco: Never Comments No Sex and Gender Information Value Date Recorded Sex Assigned at Not on file Legal Sex Female 6:14 AM GLASS EDGER Gender Identity Not on file Sexual Orientation Not on file Last Filed Vital Signs Vital Sign Reading Time Taken Comments Blood Pressure 100/64 08/13/2017 1:02 PM GLASS EDGER Pulse 72 08/13/2017 1:02 PM GLASS EDGER Temperature 36.5 C (97.7 F) 08/13/2017 1:02 PM GLASS EDGER Respiratory Rate 16 08/13/2017 1:02 PM GLASS EDGER Oxygen Saturation 97% 08/09/2017 9:29 AM GLASS EDGER Inhaled Oxygen Concentration - - Weight 54.9 kg (121 lb) 08/13/2017 1:02 PM GLASS EDGER Height 157.5 cm (5' 2) 08/13/2017 1:02 PM GLASS EDGER Body Mass Index 22.13 08/13/2017 1:02 PM GLASS EDGER Plan of Treatment Health Maintenance Due Date Last Done Comments COLOGUARD (AGES 45-75) - COL ON CA SCREENING 1971 COLON MONITORING 1971 COLONOSCOPY - COLON CA SCREENING 1971 CT COLONOGRAPHY - COLON CA SCREENING 1971 Colorectal Cancer Screening 1971 FIT - COLON CA SCREENING 1971 FLEX SIG - COLON CA SCREENING 1971 LIPID TESTING 1971 MAMMOGRAM 1971 HIV SCREENING 1986 HEPATITIS C SCREENING 07/21/1989 DTAP/TDAP/TD VACCINES (1 - Tdap) 1990 HEPATITIS B VACCINE (1 of 3 - 19+ 3-dose series) 1990 PNEUMOCOCCAL VACCINE 50+ (1 of 1 - PCV) 2021 ZOSTER VACCINE (1 of 2) 2021 DEPRESSION SCREENING 07/03/2024 COVID-19 VACCINE (1 - 2023-2 5 season) 2025 INFLUENZA VACCINE (#1) 2025 HIB VACCINE Aged Out No longer eligi ble based on patient's age to complete this topic HPV VACCINE Aged Out No longer eligi ble based on patient's age to complete this topic MENINGOCOCCAL (Group B) VACC INE SHARED DECISION-MAKING Aged Out No longer eligibl e based on patient's age to complete this topic MENINGOCOCCAL GROUPS A/C/Y/W VACCINE Aged Out No longer eligible b ased on patient's age to complete this topic Insurance [facility] Care Teams Pigment Weigher Relationship Specialty Start Date End Date Tracee Rose MD PCP - General Family Medicine 05/09/17
--- OUTSIDE RECORDS SUMMARY | 2025-04-04 08:24 | XMS_ITS | Clinical Summary ---
Author Organization [facility] Address [address] [place] [address] Care Team Providers Care Order Editor Name Role Phone Charlotte Khan MD Primary Care Provider Allergies No known active allergies Medications * This document contains information received from the source organization and may not represent a complete record from that organization. ibuprofen (ADVIL,MOTRIN) 200 mg tab/cap Take by mouth every 6 (six) hours as needed for pain. Active topiramate (TOPAMAX) 25 mg tablet TAKE 2 TABLETS AT BEDTIME 180 tablet 3 Active eszopiclone (LUNESTA) 1 mg tabletIndication s:Insomnia Take 1 tablet (1 mg total) by mouth nightly as needed for sleep Take immediately before bedtime 30 tablet [address] (PROTONIX) 40 mg EC tablet Take 1 tablet (40 mg total) by mouth daily 90 tablet 4 Active dicyclomine (BENTYL) 10 mg capsule Take 1 capsule (10 mg total) by mouth 4 (four) times a day before meals and nightly 120 capsule 11 Active Additional Information Patient not taking.Reported on 02/18/2025 cholecalciferol 25 mcg (1,000 unit) tablet Take 2 tablets (2,000 Units total) by mouth daily Active cyanocobalamin (Vitamin B-12) 50 mcg tabletIndication s:Prevention of Vitamin B12 Deficiency Take 1 tablet (50 mcg total) by mouth daily Active Nurtec ODT tablet,disintegr ating PLACE 1 TABLET (75 MG TOTAL) UNDER THE TONGUE EVERY OTHER DAY 16 tablet 11 Active ondansetron ODT (ZOFRAN-ODT) 8 mg disintegrating tablet Take 1 tablet (8 mg total) by mouth every 8 (eight) hours as needed for nausea or vomiting 20 tablet 2 Active prochlorperazine (COMPAZINE) 10 mg tabletIndication s:Nausea and Vomiting Take 1 tablet (10 mg total) by mouth every 8 (eight) hours as needed for nausea 30 tablet Active indomethacin (INDOCIN) 25 mg capsule Take 1 capsule (25 mg total) by mouth 3 (three) times a day as needed for pain (pain) 30 capsule 1 025 2025 Active estradioL (ESTRACE) 0.01 % (0.1 mg/gram) vaginal creamIndications :Dyspareunia in female,Genitouri nary syndrome of menopause Apply nightly to vagina for 2 weeks, then twice weekly 42.5 g 5 025 2025 Active tirzepatide, weight loss, (Zepbound) 5 mg/0.5 mL pen injectorIndicati ons:Obesity, Class I, BMI 30-34.9,BMI 30.0-30.9,adult Inject 0.5 mL (5 mg total) under the skin every 7 days 2 mL 3 Active Botox 100 unit recon soln INJECT UP TO 200 UNITS INTRAMUSCULARLY EVERY 12 WEEKS (DISCARD UNUSED AFTER FIRST USE) 2 each 2 Active ziprasidone (GEODON) 20 mg capsule Take one capsule nightly for 5 nights 5 capsule Active Botox 100 unit recon soln INJECT UP TO 200 UNITS INTRAMUSCULARLY EVERY 12 WEEKS (DISCARD UNUSED AFTER FIRST USE) 2 each 2 025 2024 Discontinued Hospital, Clinic, or Other Facility Administered Medication Ordered Dose Route Frequency Start Date End Date Status onabotulinumtoxin A (BOTOX) 200 unit injection 200 UnitsIndications:Intr actable chronic migraine without aura and without status migrainosus 200 Units OTHER Once for Clinic-Administere d Medication 04/15/2025 Active Active Problems Problem Noted Date Diagnosed Date Encounter for weight loss counseling 02/17/2025 Assessment & Plan (02/17/2025 9:36 AM CDT): Reviewed importance of adequate protein intake. Reviewed recommendation/goal of >/= 150 minutes/week moderate intensity aerobic exercise. Discussed okay to not track food/calories but that if they start to struggle or are not losing weight, this is a useful tool to help refocus. Discussed limiting calorie intake with restaurant options including planning meals prior to ordering, eating only half the meal, and substituting certain items. Obesity, Class I, BMI 30-34.9 02/17/2025 Assessment & Plan (02/17/2025 11:48 AM CDT): Continue low carb, low glycemic diet. is currently on Zepbound 5mg space out injection to every 14 days instead Weight maintenance Do not want weight below 110-113 lbs Pt will message or call us if they continue to lose weight and we can adjust medications as needed May consider decreasing zepbound to 2.5mg or spacing out zepbound 5mg every 3 weeks in the future if continued weight loss. increase physical activity, water, and protein (eat protein first, veggies, fruits, starchy veggies, legumes, grains) Increase to 60-80+ fl oz daily Increase protein intake to 70-90g daily Try to increase intentional physical activity and add in some strength training (weights, resistance bands, yoga, pilates) Order of Eating: protein first, then vegetables/fruits, then wait 10 minutes and eat carbohydrates last. Reviewed importance of adequate protein intake. Reviewed recommendation/goal of >/= 150 minutes/week moderate intensity aerobic exercise. BMI 30.0-30.9,adult 02/17/2025 Assessment & Plan (02/17/2025 11:33 AM CDT): Patient's initial BMI was 30.22; this has improved to 20.81 through medical management Encounter for exercise counseling 02/17/2025 Assessment & Plan (02/17/2025 9:36 AM CDT): I counseled the patient on exercise: Recommend 36 min. cardio daily. Based on availiable data on the secondary prevention of coronary heart disease, stroke and prediabetes, physical activity is potentially as active as many drug interventions.Mando Tai: BMJ 2013 [id number];04/2013; Diabetes Care, Volume 35, Jun 2012. Reviewed recommendation/goal of >/= 150 minutes/week moderate intensity aerobic exercise. Discussed need for weightbearing exercise in order to promote muscle gain and burning fat. Otitis media with effusion, bilateral 08/29/2024 Conductive hearing loss, bilateral 08/29/2024 Encounter for weight management 05/14/2024 Metabolic syndrome 05/14/2024 Assessment & Plan (02/17/2025 9:36 AM CDT): Obesity is one of the leading risk factor for mortality. Metabolically healthy obese individuals had 49% increased risk of coronary artery disease, 7% increased risk of cerebrovascular disease and 96% increased risk of heart failure. In other words, even individuals who are normal weight can have metabolic abnormalities and similar risk for cardiac vascular disease events. Thus, the complications that may result from metabolic syndrome and frequently serious and chronic. They include atherosclerosis, diabetes, myocardial infarction, renal disease, cardiovascular events such as stroke, nonalcoholic fatty liver disease, peripheral artery disease, and cardiovascular diseases. His diabetes develops; there is an increased risk of retinopathy, neuropathy, renal disease and amputation of limbs. Therefore, treating obesity, obesity related diseases is exceedingly crucial. Improving the hypertrophic adipocytes function and decrease insulin resistance is the main goal of the treatment. Furthermore, an emerging concept that the anti-obesity agents must not only reduce the hypertrophic adipocytes but must also correct the fat dysfunction, adiposopathy. Weight loss is associated with increases in mean suppression of glucose production from baseline, is associated with increase insulin stimulated in glucose disposal from fat-free mass and weight loss increased beta cell function. In other words, weight loss change in hepatic insulin sensitivity and muscle insulin sensitivity, beta cell function and a 24-hour plasma glucose and insulin profiles. Our goal is and decreasing the weight between 16 and 20% which will significantly decrease the risk of morbidity and mortality. Class 1 obesity due to exces s calories without serious comorbidity with body mass index (BMI) of 31.0 to 31.9 in adult 05/14/2024 Special screening for malignant neoplasms, colon 01/20/2022 Overview (01/20/2022): Added automatically from request for surgery [id number] Migraine 06/16/2020 Muscle tension dysphonia 08/23/2018 Assessment & Plan (08/23/2018 2:12 PM AIR DUCT MECHANIC): For that reason, I have recommended voice therapy here at the [facility] in order to improve the biomechanics of the patient's voice, which will improve the patient's associated symptoms. 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 Assessment & Plan (08/23/2018 2:48 PM AIR DUCT MECHANIC): For that reason, I have recommended voice therapy here at the [facility] in order to [...] (SNHL) 12/23/2014 06/24/2020 Thrombocytopenia 09/30/2011 04/08/2024 Encounters * This document contains information received from the source organization and may not represent a complete record from that organization. Date Type Department Care Team Description 03/20/[address] [facility] General Neurology [address] [place] [address] Maria Teresa Kelly 02/18/2025 1:15 PM CDT Office Visit [facility] Medicine Obstetrics and Gynecology [address] [place] [address] Bren Velez NP Encounter for well woman exam with routine gynecological exam (Primary Dx); Vaginismus; Genitourinary syndrome of menopause; Encounter for screening mammogram for malignant neoplasm of breast 02/17/2025 11:30 AM CDT Telemedicine [facility] Metabolic Weight Management [address] [place] [address] Mya Barroso PA Encounter for weight loss counseling (Primary Dx); Obesity, Class I, BMI 30-34.9; BMI 30.0-30.9,adult; Encounter for exercise counseling; Metabolic syndrome 02/03/2025 Telephone [facility] Metabolic Weight Management [address] [place] [address] Joanie Andres CPhT Prior Auth (Zepbound renewal) 01/22/2025 Orders Only [facility] General Neurology [address] [place] [address] Maria Teresa Kelly Intractable chronic migraine without aura and without status migrainosus (Primary Dx) 01/21/2025 3:40 PM CDT Procedure visit [facility] General Neurology [address] [place] [address] Darya Jaime MD PhD Intractable chronic migraine without aura and without status migrainosus (Primary Dx) from Last 3 Months Immunizations Immunization Administration Dates Next Due Influenza, Trivalent, Cell Culture-based MDCK, Preservative Free, Antibiotic Free, Intramuscular 04/19/2024 Influenza, Unspecified 04/08/2024(Deferr ed: Patient Refused),04/04/2023,04/03/2021, 020,04/28/2018 MMR 01/16/2025,12/19/2024 Pfizer SARS-CoV-2 Monovalent Vaccination (12+ Yrs) PURPLE 12/12/2020,11/21/2020 Tdap 06/24/2020 Surgical History Surgery Date Site/Laterality Comments OH LIG/TRNSXJ FLP TUBE ABDL/VAG APPR UNI/BI Tubal Ligation - (Added by TW Conv) SINUS SURGERY Sinus Surgery - (Added by TW Conv) OH TOTAL ABDOMINAL HYSTERECT W/WO RMVL TUBE OVARY Hysterectomy - 07/2009 partial (Added by TW Conv) SECTION PARTIAL HYSTERECTOMY 07/03/2010 - 07/02/2011 HYSTERECTOMY CEREBRAL ANGIOGRAM 07/03/2016 - 07/02/2017 to assess cerebral aneurysm TUBAL LIGATION Medical History Medical History Date Comments delivery delivered Cesa rean Delivery - 2001 (Added by TW Conv) Chronic sinusitis Chronic sinusi tis - (Added by TW Conv) Headache Migraines Cerebral aneurysm Chronic constipation Anxiety 12/05/2020 Brain concussion May 2018 Family History Medical History Relation Name Comments Depression Daughter Beth Alcohol abuse Father Rishi COPD Father Rishi Heart disease Father Rishi Family history of cardiac disorder - (Added by TW Conv) Hypertension Father Rishi Stroke Father Rishi Family history of cerebrovascular accident (CVA) - (Added by TW Conv) Cancer Father's Brother 1 Jamie Cancer Father's Brother 2 Tony Cancer Maternal Grandfather Charles Clotting disorder Maternal Grandmother Juju Early Maternal Grandmother Juju COPD Mother Jass Clotting disorder Mother's Sister Julianna Headache Other 1 Headache - Moth er, Sister, Son (Added by TW Conv) Breast cancer Other 2 Family history of malignant neoplasm of breast - Relation: Aunt (Added by TW Conv) Obesity Sister Anabela Relation Name Status Comments Daughter Beth Alive Father Rishi Alive Father's Brother 1 Jamie Alive Father's Brother 2 Tony Alive Maternal Grandfather Charles Alive Maternal Grandmother Juju Alive Mother Jass Alive Mother's Sister Julianna Alive Other 1 Other 2 Sister Anabela Alive Social History Tobacco Use Types Packs/Day Years Used Date Smoking Tobacco: Never Smokeless Tobacco: Never Tobacco Cessation:Counseling Given: Not Answered Alcohol Use Standard Drinks/Week Comments Not Currently 0 (1 standard drink = 0.6 oz pur e alcohol) rare AUDIT-C Answer Date Recorded Q1: How often do you have a drink containing alc ohol? Monthly or less 11/21/2024 Q2: How many drinks containi ng alcohol do you have on a typical day when you are drinking? 1 or 2 11/21/2024 Q3: How often do you have si x or more drinks on one occasion? 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 Not on file Obstetrics History Para Term AB IAB SAB Ectopic Multiple Livin g Live Births 2 2 1 1 1 3 3 Date Outcome GA Total Labor Labor/2nd/3rd Weight Sex Type Anes PTL Ca A1 A5 Name Clin 1993 Term M Vaginal Living 2000 F C-Secti on Living F C-Secti on Living Last Filed Vital Signs Vital Sign Reading Time Taken Comments Blood Pressure 113/80 02/18/2025 1:16 PM CDT Pulse 81 02/18/2025 1:16 PM CDT Temperature 36.8 C (98.2 F) 01/21/2025 3:18 PM CDT Respiratory Rate 18 01/21/2025 3:18 PM CDT Oxygen Saturation 100% 11/21/2024 3:24 PM CDT Inhaled Oxygen Concentration - - Weight 52.2 kg (115 lb) 02/18/2025 1:16 PM CDT Height 157.5 cm (5' 2) 02/18/2025 1:16 PM CDT Body Mass Index 21.03 02/18/2025 1:16 PM CDT Plan of Treatment Health Maintenance Due Date Last Done Comments Hepatitis C Screening 1971 Hepatitis B Screening 1989 Zoster Vaccine (1 of 2) 2021 Covid-19 Vaccine ( season) 2025 12/12/2020, 11/21/2020 Influenza Vaccine (#1) 2025 , 04/04/2023, 04/03/2021, Additional history exists Breast Cancer Screening-Mammogram 06/21/2025 06/21/2024, 08/20/2022, 05/28/2019, Additional history exists Depression Screening 08/21/2025 08/21/2024, 04/08/2024, 11/01/2023, Additional history exists Regular Well Visit/Exam 18-64 02/18/2026 02/18/2025, 04/08/2024, 04/06/2023, Additional history exists DTaP/Tdap/Td Vaccine (2 - Td or Tdap) 06/24/2030 06/24/2020 Colon Cancer Screening-Colonoscopy 02/29/2032 02/28/2022 Pneumococcal vaccine <65 Aged Out No longer eligible based on patient's age to complete this topic Procedures Procedure Name Priority Date/Time Associated Diagnosis Comments SCREENING MAMMOGRAM BILATERAL W SHAYAN Schedule Routine, Read Routine (OP Routine) 06/21/2024 9:14 AM AIR DUCT MECHANIC Encounter for screening mammogram for malignant neoplasm of breast COLONOSCOPY Routine 02/28/2022 from Last 3 Months or Most Recently Relevant to Health Maintenance Results * Screening Mammogram Bilateral W Shayan (06/21/2024 9:14 AM AIR DUCT MECHANIC) Anatomical Region Laterality Modality Breast Bilateral Mammography Narrative 06/21/2024 3:24 PM AIR DUCT MECHANIC Mammogram Technique: Bilateral Digital Breast Tomosynthesis, Bilateral C-view 2D Screening mammogram. Views obtained: bilateral craniocaudal and bilateral mediolateral oblique. Computer Aided Detection was performed. Mammogram Findings: The present examination has been compared to prior imaging studies performed at [facility] on 11/03/2016, 05/28/2019 and 08/20/2022. The [...] compared to prior imaging studies performed at [facility] on 11/03/2016, 05/28/2019 and 08/20/2022. The [...] IMG MAMMO PRO CEDURES Final Result * Colonoscopy (02/28/2022) Anatomical Region Laterality Modality Other Historical Provider ENDOSCOPY PROCEDURES Sakina l Result from Last 3 Months or Most Recently Relevant to Health Maintenance Insurance [facility] [employer]O Address: [address] [address] [place] [address] [place] [address] [employer]/PPO Address: [address] [address] [place] [address] [employer]/PPO Address: [address] [address] Care Teams Order Editor Relationship Specialty Start Date End Date Charlotte Khan MD PCP - General Internal Medicine 06/24/20
--- OUTSIDE RECORDS SUMMARY | 2025-04-04 08:24 | XMS_ITS | Encounter Summary ---
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
[2025-04-04 08:27] VITALS: BP 96/65; PULSE 86; RESP 18; TEMP 36.1; O2SAT 100
[2025-04-04 08:50] LABS: EDSTREPNEGPOS1 Negative (Negative)
--- NOTE | 2025-04-04 09:07 | ED.URI ---
HPI - URI/Sore Throat General Chief Complaint: Upper Respiratory Infection Stated Complaint: Sore throat Time Seen by Provider: 04/04/25 09:00 Source: patient and RN notes reviewed Mode of arrival: ambulatory Limitations: no limitations History of Present Illness HPI Narrative: 54-year-old female presents Express Care complaining of fatigue, body aches, chills, sore throat, headaches, cough, mild congestion for approximately 9 days. Patient says symptoms are not getting much better. Patient denies any other upper respiratory symptoms, fevers, sweats, chest pain difficulty breathing, nausea, vomiting, diarrhea, or any other symptoms. Patient is taking Tylenol to help with symptoms. Related Data Home Medications ?Medication ?Instructions ?Recorded ?Confirmed ?Last Taken ?Type eszopiclone 1 mg tablet 1 mg PO HS 03/13/24 03/13/24 Unknown History pantoprazole 40 mg tablet,delayed 40 mg PO DAILY 03/13/24 03/13/24 Unknown History release rimegepant 75 mg disintegrating 75 mg PO PRN PRN Migraine Headache 03/13/24 03/13/24 Unknown History tablet (Nurtec ODT) topiramate 25 mg tablet 25 mg PO BID 03/13/24 03/13/24 Unknown History onabotulinumtoxinA 100 unit 15 unit IM ONCE 08/16/24 Unknown History solution for injection (Botox) tirzepatide (weight loss) 2.5 mg subcut 08/16/24 Unknown History mg/0.5 mL subcutaneous pen injector (Zepbound) Allergies Allergy/AdvReac Type Severity Reaction Status Date / Time No Known Allergies Allergy Verified 04/04/25 09:05 Review of Systems Review of Systems: CONSTITUTIONAL: Denies fever, chills, body aches, or sweats. EYES: Denies visual changes, redness, or discharge. ENT: Positive for congestion, sore throat. Negative for rhinorrhea Or otalgia. CARDIOVASCULAR: Denies chest pain, palpitations, or edema. RESPIRATORY: Positive for cough. Negative for dyspnea or wheezing. GASTROINTESTINAL: Denies abdominal pain, nausea, vomiting, or diarrhea. GENITOURINARY: Denies dysuria or hematuria. SKIN: Denies rash or itching. MUSCULOSKELETAL: Denies back pain, joint pain, or myalgia. NEUROLOGIC: Denies headache, numbness, or weakness. PSYCHIATRIC: Denies anxiety or depression. All other systems reviewed are negative, except as documented in HPI. [facility] Past Medical History Medical History Cerebral aneurysm Hx of migraines Surgical History Surgical History Tubal ligation status Previous section H/O: hysterectomy Family History Family History Mother Patient's mother is in good health Father Patient's father is in good health Grandparent DVT (deep venous thrombosis) Father Hypertension Other Diabetes mellitus Family history of attention deficit hyperactivity disorder (ADHD) Family history of migraine headaches Family history of transient ischemic attacks Social History Social History Smoking status: Never smoker Alcohol intake: current Gender identity (if verbalized by the patient): Female Comments At the time of my signature, I reviewed and agree with the nursing past medical, surgical, social, and family history. There is no relevant family history pertinent to the patient complaint. Exam Narrative: GENERAL: This is a well-nourished, well-developed adult, in no apparent distress. They are non ill-appearing, nontoxic appearing. HEAD: normocephalic, atraumatic. EYES: Sclera clear/white. Vision is grossly intact. Conjunctiva normal bilaterally. Extraocular movements intact. EARS: External ears normal, auditory canals clear and without drainage, TMs without erythema or perforation. Hearing grossly intact. NOSE: External nose normal with no obvious nasal discharge, nasal turbinates erythematous, no rhinorrhea. THROAT: Mucous membranes moist, posterior pharynx erythematous without exudate. Uvula is midline. Postnasal drip present. NECK: Neck supple, non-tender without lymphadenopathy, masses or thyromegaly. CARDIOVASCULAR: Regular rate and rhythm without murmurs, gallops, or rubs. RESPIRATORY: Clear to auscultation. Breath sounds equal bilaterally. No wheezes, rales, or rhonchi. SKIN: warm, Dry, intact with no suspicious lesions or rash, good texture and turgor. NEURO: awake, alert, and oriented to person, place and time. There were no obvious focal neurologic abnormalities. EXTREMITIES: No joint tenderness, effusion, or edema noted. BACK: Nontender without deformity. Course Course Emergency Course: Portions of this record may have been created with voice recognition software Level of Care: Express Care Visit Vital Signs Vital signs: Vital Signs Temperature 97.0 F L 04/04/25 08:27 Pulse Rate 86 04/04/25 08:27 Respiratory Rate 18 04/04/25 08:27 Blood Pressure 96/65 L 04/04/25 08:27 Pulse Oximetry 100 04/04/25 08:27 Oxygen Delivery Room Air 04/04/25 08:27 Temperature 97.0 F L 04/04/25 08:27 Pulse Rate 86 04/04/25 08:27 Respiratory Rate 18 04/04/25 08:27 Blood Pressure 96/65 L 04/04/25 08:27 Pulse Oximetry 100 04/04/25 08:27 Oxygen Delivery Room Air 04/04/25 08:27 MDM - URI/Sore Throat MDM Narrative Medical decision making narrative: Rapid strep negative. Throat culture is pending. Given length of symptoms patient likely has bacterial sinusitis. Will go ahead and treat with Augmentin. Discussed physical exam findings. Advised supportive measures and signs/symptoms to go to the ER. Pt is appropriate for outpt treatment and f/u. Differential Diagnosis Differential diagnosis: Likely upper respiratory infection, sinusitis, viral infection, bronchitis and pharyngitis Lab Data Attestation: I reviewed the patient's lab results. Labs: Lab Results 04/04/25 Range/Units 08:48 POC Grp A Strep Screen Negative (Negative) Discharge Plan Discharge Clinical Impression: Sinusitis Patient Disposition: Home Condition: Stable Instructions: Antibiotic Form, Sinusitis (ED) Additional Instructions: Your rapid strep is negative today. A throat culture will be sent off and if it is positive for strep you will be contacted. Take the antibiotics as directed and complete the course even if you start to feel better. You may use a Neti pot saline rinse 3 times a day with lukewarm distilled water Continue to take Tylenol or Motrin for pain. Follow instructions on the bottle. Use a humidifier or vaporizer at night. Drink plenty of water. 8-10 glasses per day. Use flonase 2 times per day for 5 days then as needed Take mucinex 2 times per day and be sure to take with 8oz of water. Follow up with Primary provider in 3-5 days Please go to the ER if he develops any difficulty breathing, worsening symptoms, or any other concerns Patient Language: Irish Prescriptions: New amoxicillin-pot clavulanate 875-125 mg tablet 1 tablet PO Q12H 7 Days Qty: 14 0RF No Action topiramate 25 mg tablet 25 mg PO BID pantoprazole 40 mg tablet,delayed release (DR/EC) 40 mg PO DAILY eszopiclone 1 mg tablet 1 mg PO HS Nurtec ODT 75 mg tablet,disintegrating 75 mg PO PRN PRN (Reason: Migraine Headache) Zepbound 2.5 mg/0.5 mL pen injector SUBCUT Botox 100 unit recon soln 15 unit IM ONCE Rx Instructions: as a single dose Follow-up/Referrals: Bill,Charlotte Miller MD [Primary Care Provider, Internal Medicine] Time of Disposition: 09:06
== END 2025-04-04 09:10 | disposition home or self-care (01) ==
PROVIDERS: PCP Internal Medicine
DX: J32.9 Chronic sinusitis, unspecified (principal); I67.1 Cerebral aneurysm, nonruptured
CPT/HCPCS: 87081; 87880; 99213; G0463